=== PATIENT | female | born 1935 | race Caucasian/White ===

== ENCOUNTER 2021-08-14 17:11 | Inpatient (IN) | payer MEDICARE, OTHER ==
[2021-08-14] MEDS ORDERED: Sodium Chloride 0.9% 10 ML Syringe FLUSH PRN (17:13)
[2021-08-14] MEDS ORDERED: Lactated Ringers 1,000 ML IV ONE (17:15)
[2021-08-14] MEDS ORDERED: cefTRIAXone 2 GM Vial IVPUSH STA (17:21)
[2021-08-14] MEDS ORDERED: Acetaminophen 500 MG Tab PO ONE (17:32)
--- NOTE | 2021-08-14 17:32 | EDM.PDOC ---
ED HPI GENERAL MEDICAL PROBLEM - General Chief Complaint: Fever Stated Complaint: Chills, Fever,Weakness Time Seen by Provider: 08/14/21 17:11 Source of Information: Reports: Patient History Limitations: Reports: No Limitations - History of Present Illness INITIAL COMMENTS - FREE TEXT/NARRATIVE: Patient comes emergency department today from home with complaints of fever and shaking. This patient who has a history of Hypertension high cholesterol type 2 diabetes hypothyroidism obesity hyponatremia CKD stage III who received her Covid vaccine on Wednesday has had fever chills. This patient over the past 2 weeks is just not felt well. She has not had much of an appetite. She has had a little bit of a cough and congestion. She received her Covid booster on Wednesday and since then she has had increased malaise fatigue body aches fever and chills. She was seen in the clinic today for similar concerns and not have any lab work but received IV fluids. She did have some diarrhea on and Wednesday of last week. She has not been on any antibiotics recently no recent travel. At this time she has no shortness of breath or difficulty breathing. She has complained of a cough that is nonproductive. No abdominal pain nausea or vomiting. No hematuria dysuria urinary frequency. Diarrhea has resolved. She has generlized weakness as well nothing specific. - Related Data Allergies Allergy/AdvReac Type Severity Reaction Status Date / Time ciprofloxacin Allergy Nausea and Verified 08/14/21 18:00 Vomiting Penicillins Allergy Rash Verified 08/14/21 18:00 Home Meds: Home Meds Cholecalciferol (Vitamin D3) [Vitamin D3] 1,000 units PO BID 03/20/14 [History] Chondroitin/Glucosamine [Glucosamine-Chondroitin] 2 cap PO DAILY 03/20/14 [History] Losartan [Cozaar] 1 cap PO DAILY 03/20/14 [History] Multivitamin [Multi-Vitamin Daily] 1 each PO DAILY 03/20/14 [History] Ciclopirox [Penlac 8% Nail Lacquer] 1 applic TOP BEDTIME 08/14/21 [History] Cranberry Fruit Extract [Cranberry] 200 mg PO BID PRN 08/14/21 [History] Docusate Sodium 100 mg PO DAILY 08/14/21 [History] Fluticasone Propionate [Flonase] 1 spray NASBOTH DAILY 08/14/21 [History] Levothyroxine [Synthroid] 50 mcg PO ACBREAKFAST 08/14/21 [History] Pantoprazole [ProTONIX] 40 mg PO DAILY 08/14/21 [History] Simvastatin [Zocor] 40 mg PO BEDTIME 08/14/21 [History] Spironolactone 50 mg PO DAILY 08/14/21 [History] atenoloL [Atenolol] 100 mg PO DAILY 08/14/21 [History] cilostazoL [Pletal] 100 mg PO BID 08/14/21 [History] Past Medical History HEENT History: Reports: Impaired Vision Cardiovascular History: Reports: High Cholesterol, Hypertension Genitourinary History: Reports: UTI, Recurrent Endocrine/Metabolic History: Reports: Diabetes, Type II Social & Family History - Living Situation & Occupation Living situation: Reports: , with Family Occupation: Other ED ROS GENERAL - Review of Systems Review Of Systems: Comprehensive ROS is negative, except as noted in HPI. ED EXAM, SEPSIS - Physical Exam Exam: See Below Exam Limited By: No Limitations General Appearance: Alert, WD/WN, No Apparent Distress Eye Exam: Bilateral Eye: EOMI, PERRL Ears: Normal External Exam Nose: Normal Inspection Throat/Mouth: Normal Inspection Head: Atraumatic, Normocephalic Neck: Normal Inspection, Supple, Non-Tender, Full Range of Motion Respiratory/Chest: No Respiratory Distress, Lungs Clear, Normal Breath Sounds, No Accessory Muscle Use, Chest Non-Tender Cardiovascular: Normal Peripheral Pulses, Regular Rate, Rhythm, Tachycardia Peripheral Pulses: 2+: Radial (L), Radial (R), Posterior Tibial (L), Posterior Tibial (R), Dorsalis Pedis (L), Dorsalis Pedis (R) GI/Abdominal Exam: Normal Bowel Sounds, Soft, Non-Tender (Female) Exam: Deferred Rectal (Female) Exam: Deferred Back: Normal Inspection, Full Range of Motion Extremities: Normal Inspection, Normal Range of Motion, Non-Tender, No Pedal Edema, Normal Capillary Refill Neurological: Alert, Oriented, Normal Cognition, No Motor/Sensory Deficits Psychiatric: Normal Affect, Normal Mood Skin: Intact, Normal Color, Diaphoretic, Increased Warmth Course - Vital Signs Last Recorded V/S: Last Vital Signs Temp 100.6 F 08/14/21 18:08 Pulse 91 08/14/21 18:30 Resp 22 H 08/14/21 18:30 BP 149/52 H 08/14/21 18:30 Pulse Ox 88 L 08/14/21 18:30 - Orders/Labs/Meds Orders: Active Orders 24 hr Category Date Time Status Admission Status [Patient Status] [ADT] Routine ADT 08/14/21 18:53 Active Cardiac Monitoring [RC] CONTINUOUS Care 08/14/21 17:14 Active Overnight Pulse Oximetry [RC] Click to Edit Care 08/14/21 17:14 Active Peripheral IV Care [RC] . DIRECTED Care 08/14/21 17:15 Active Chest 1V Frontal [CR] Stat Exams 08/14/21 17:13 Taken CORONAVIRUS COVID-19 SYED [MOLEC] Stat Lab 08/14/21 17:25 Received CULTURE BLOOD [BC] Stat Lab 08/14/21 17:15 Received CULTURE BLOOD [BC] Stat Lab 08/14/21 17:45 Received CULTURE URINE [RM] Stat Lab 08/14/21 18:43 Received FERRITIN [CHEM] Stat Lab 08/14/21 19:33 Ordered FOLATE [REF] Stat Lab 08/14/21 19:33 Ordered FOLIC ACID [CHEM] Stat Lab 08/14/21 19:33 Ordered IRON/TIBC [CHEM] Stat Lab 08/14/21 19:33 Ordered PROCALCITONIN [REF] Stat Lab 08/14/21 17:15 Received VITAMIN B12 [CHEM] Stat Lab 08/14/21 19:33 Ordered Sodium Chloride 0.9% [Normal Saline] 1,000 ml Med 08/14/21 18:30 Active IV ASDIRECTED Sodium Chloride 0.9% [Saline Flush] Med 08/14/21 17:13 Active 10 ml FLUSH ASDIRECTED PRN Sodium Chloride 0.9% [Saline Flush] Med 08/14/21 17:15 Active 10 ml FLUSH ASDIRECTED PRN Blood Culture x2 Reflex Set [OM.PC] Stat Oth 08/14/21 17:13 Ordered Peripheral IV Insertion Adult [OM.PC] Stat Oth 08/14/21 17:15 Ordered Pulse Oximetry Continuous Monitoring [OM.PC] Routine Oth 08/14/21 17:13 Ordered Saline Lock Insert [OM.PC] Stat Oth 08/14/21 17:13 Ordered Severe Sepsis Onset Time [OM.PC] Stat Oth 08/14/21 17:13 Ordered Medication Orders Sodium Chloride (Normal Saline) 1,000 mls @ 150 mls/hr IV ASDIRECTED SIMONA Last Admin: 08/14/21 18:19 Dose: 150 mls/hr Documented by: STEVEN Sodium Chloride (Sodium Chloride 0.9% 10 Ml Syringe) 10 ml FLUSH ASDIRECTED PRN PRN Reason: Keep Vein Open Sodium Chloride (Sodium Chloride 0.9% 10 Ml Syringe) 10 ml FLUSH ASDIRECTED PRN PRN Reason: Keep Vein Open Labs: Laboratory Tests 08/14/21 08/14/21 08/14/21 Range/Units 17:15 17:15 17:15 WBC 5.1 (4.0-10.2) K/uL RBC 3.14 L (3.77-5.09) M/uL Hgb 10.3 L D (11.7-15.5) g/dL Hct 29.5 L (34.0-46.0) % MCV 93.9 (84.0-98.0) fL MCH 32.8 (28.2-33.3) pg MCHC 34.9 (31.7-36.0) g/dL RDW 11.7 (11.2-14.1) % Plt Count 246 (150-350) K/uL Neut % (Auto) 91.2 H (45.0-80.0) % Lymph % (Auto) 6.6 L (10.0-50.0) % [place] % (Auto) 1.4 L (2.0-14.0) % Eos % (Auto) 0.6 (0.0-5.0) % Baso % (Auto) 0.2 (0.0-2.0) % Neut # (Auto) 4.67 (1.40-7.00) K/uL Lymph # (Auto) 0.34 L (0.50-3.50) K/uL [place] # (Auto) 0.07 (0.00-1.00) K/uL Eos # (Auto) 0.03 (0.00-0.50) K/uL Baso # (Auto) 0.01 (0.00-0.20) K/uL Sodium 128 L D (136-145) mmol/L Potassium 4.6 (3.5-5.1) mmol/L Chloride 96 L (98-107) mmol/L Carbon Dioxide 18.7 L (21.0-32.0) mmol/L Anion Gap 17.9 H (7-15) meq/L BUN 30 H (7-18) mg/dL Creatinine 1.87 H (0.51-1.17) mg/dL Est Cr Clr Drug Dosing 20.59 mL/min Estimated GFR (MDRD) 26 mL/min Glucose 93 (70-99) mg/dL Lactic Acid 1.3 (0.4-2.0) mmol/L Calcium 9.0 (8.5-10.1) mg/dL Total Bilirubin 0.7 (0.2-1.0) mg/dL AST 46 H (15-37) U/L ALT 52 (12-78) U/L Alkaline Phosphatase 36 L (46-116) IU/L C-Reactive Protein 22.0 H (<=0.9) mg/dL Total Protein 7.0 (6.4-8.2) g/dL Albumin 2.9 L (3.4-5.0) g/dL Specimen Type Urine Color Urine Appearance Urine pH (5.0-9.0) Ur Specific [place] (1.005-1.030) Urine Protein (NEGATIVE) mg/dL Urine Glucose (UA) (NEGATIVE) mg/dL Urine Ketones (NEGATIVE) mg/dL Urine Occult Blood (NEGATIVE) Urine Nitrite (NEGATIVE) Urine Bilirubin (NEGATIVE) Urine Urobilinogen (0.2-1.0) E.U./dL Ur Leukocyte Esterase (NEGATIVE) U Hyaline Cast (Auto) Urine RBC /HPF Urine WBC /HPF Ur Epithelial Cells /LPF Urine Bacteria (NONE TO FEW) /HPF Urinalysis Comment SARS-CoV-2 Ag (Rapid) (NEGATIVE) 08/14/21 08/14/21 Range/Units 17:25 18:43 WBC (4.0-10.2) K/uL RBC (3.77-5.09) M/uL Hgb (11.7-15.5) g/dL Hct (34.0-46.0) % MCV (84.0-98.0) fL MCH (28.2-33.3) pg MCHC (31.7-36.0) g/dL RDW (11.2-14.1) % Plt Count (150-350) K/uL Neut % (Auto) (45.0-80.0) % Lymph % (Auto) (10.0-50.0) % [place] % (Auto) (2.0-14.0) % Eos % (Auto) (0.0-5.0) % Baso % (Auto) (0.0-2.0) % Neut # (Auto) (1.40-7.00) K/uL Lymph # (Auto) (0.50-3.50) K/uL [place] # (Auto) (0.00-1.00) K/uL Eos # (Auto) (0.00-0.50) K/uL Baso # (Auto) (0.00-0.20) K/uL Sodium (136-145) mmol/L Potassium (3.5-5.1) mmol/L Chloride (98-107) mmol/L Carbon Dioxide (21.0-32.0) mmol/L Anion Gap (7-15) meq/L BUN (7-18) mg/dL Creatinine (0.51-1.17) mg/dL Est Cr Clr Drug Dosing mL/min Estimated GFR (MDRD) mL/min Glucose (70-99) mg/dL Lactic Acid (0.4-2.0) mmol/L Calcium (8.5-10.1) mg/dL Total Bilirubin (0.2-1.0) mg/dL AST (15-37) U/L ALT (12-78) U/L Alkaline Phosphatase (46-116) IU/L C-Reactive Protein (<=0.9) mg/dL Total Protein (6.4-8.2) g/dL Albumin (3.4-5.0) g/dL Specimen Type Urinvoid Urine Color Yellow Urine Appearance Cloudy Urine pH 5.5 (5.0-9.0) Ur Specific [place] 1.010 (1.005-1.030) Urine Protein 100 H (NEGATIVE) mg/dL Urine Glucose (UA) Negative (NEGATIVE) mg/dL Urine Ketones Negative (NEGATIVE) mg/dL Urine Occult Blood Small H (NEGATIVE) Urine Nitrite Positive H (NEGATIVE) Urine Bilirubin Negative (NEGATIVE) Urine Urobilinogen 0.2 (0.2-1.0) E.U./dL Ur Leukocyte Esterase Trace H (NEGATIVE) U Hyaline Cast (Auto) Few Urine RBC 0-5 /HPF Urine WBC 30-40 H /HPF Ur Epithelial Cells Moderate H /LPF Urine Bacteria Many H (NONE TO FEW) /HPF Urinalysis Comment See note SARS-CoV-2 Ag (Rapid) Negative (NEGATIVE) Meds: Medications Generic Name Dose Route Start Last Admin Trade Name Freq PRN Reason Stop Dose Admin Sodium Chloride 1,000 mls @ 150 mls/hr 08/14/21 18:30 08/14/21 18:19 Normal Saline IV 150 mls/hr ASDIRECTED SIMONA Administration Sodium Chloride 10 ml 08/14/21 17:13 Sodium Chloride 0.9% 10 Ml Syringe FLUSH ASDIRECTED PRN Keep Vein Open Sodium Chloride 10 ml 08/14/21 17:15 Sodium Chloride 0.9% 10 Ml Syringe FLUSH ASDIRECTED PRN Keep Vein Open Discontinued Medications Generic Name Dose Route Start Last Admin Trade Name Freq PRN Reason Stop Dose Admin Acetaminophen 1,000 mg 08/14/21 17:32 08/14/21 17:36 Acetaminophen 500 Mg Tab PO 08/14/21 17:33 1,000 mg ONETIME ONE Administration Ceftriaxone Sodium 2 gm 08/14/21 17:21 08/14/21 17:36 Ceftriaxone 2 Gm Vial IVPUSH 08/14/21 17:22 2 gm NOW STA Administration Lactated Ringer's 1,000 mls @ 1,000 mls/hr 08/14/21 17:15 08/14/21 17:20 Ringers, Lactated IV 08/14/21 18:14 1,000 mls/hr .BOLUS ONE Administration - Radiology Interpretation Free Text/Narrative:: Chest x-ray initially reviewed extemporaneously by myself question some perihilar infiltrate possible pneumonia. Patient Name: CARLOS AGUILA Date of : 1935 Procedure: XRAY CHEST 1 VIEW Date of Service: 08/14/2021 EXAM: XRAY CHEST 1 VIEW INDICATION:ICD-10 R50.9 Fever, unspecified ICD-10 R53.1 Weakness FINDINGS:There are patchy markings in the left perihilar region and both infrahi lar regions. Findings suggest bilateral pneumonia. Heart size is upper normal. Mediastinum is not widened. No overt CHF. Finalized by: Hansel Nichols MD on 08/14/2021 6:01 PM [employer]LY[employer] Patient/Procedure Information: [facility] OUTREACH MRN/JAMEL: [id number]/ Order Number: [id number] Accession Number: [id number] Ordering Provider: THEO FRYE Authorizing Provider: THEO FRYE - Re-Assessments/Exams Free Text/Narrative Re-Assessment/Exam: 08/14/21 17:26 Concerns of a sepsis was initially identified at 1710. IV was established labs are drawn to include blood cultures x2. UA and COVID test. LR 1 L wide open. Rocephin 2 g IV push. Tylenol for fever. 08/14/21 17:27 Creat baseline in epic appears to be 1.50 GFR 33. CBC, WBC 5.1, hemoglobin 10.3 which is down from 12.5 on 10/2220. Platelets normal 246 neutrophil count 91.2, lymphs 6.6 monos 1.4. CMP with a sodium of 128, on 04-29-21 it was 130, chloride 96, CO2 18.7, anion gap 17.9, BUN 30, creatinine 1.87 Lactic acid normal at 1.3. CRP 22.0. Procalcitonin pending. Covid negative. The patient is requiring 2 L of oxygen to keep her oxygen saturation above 90%. Her chest x-ray is concerning for the possibility of bilateral pneumonia. We will cover her with a azithromycin as well. UA with trace leukocytes nitrite positive large amount of U WBCs. Urine culture pending. Patient clearly has severe sepsis as well as acute kidney injury on chronic with anemia hyponatremia and generalized weakness and bilateral pneumonia and hypoxia. Due to the above concerns the patient will be placed in acute care inpatient services under my care. We will treat aggressively as per the assessment and plan. Discussed with the patient and the family her CODE STATUS which had not been discussed previously and she will be a DNR/DNI. Patient and the family are comfortable with this plan and their questions are answered. Departure - Departure Time of Disposition: 18:30 Disposition: Admitted As Inpatient 66 Clinical Impression: Hyponatremia, UTI, Urinary tract infectious disease, Severe sepsis with acute organ dysfunction, Acute respiratory failure with hypoxia, Community acquired pneumonia Acute renal failure superimposed on stage 3b chronic kidney disease Qualifiers: Acute renal failure type: unspecified Qualified Code(s): N17.9 - Acute kidney failure, unspecified; N18.32 - Chronic kidney disease, stage 3b Anemia Qualifiers: Anemia type: unspecified type Qualified Code(s): D64.9 - Anemia, unspecified - Discharge Information Referrals: Patricia Sharma PA-C [Primary Care Provider] - Forms: ED Department Discharge Sepsis Event Note (ED) - Focused Exam Vital Signs: Vital Signs Temp Temp Pulse Resp BP Pulse Ox 08/14/21 18:30 91 22 H 149/52 H 88 L 08/14/21 18:08 100.6 F 98 22 H 149/67 H 90 L 08/14/21 18:06 101.5 F H 08/14/21 17:53 97 20 142/96 H 93 L 08/14/21 17:41 101.5 F H 95 18 145/61 H 94 L 08/14/21 17:36 101.2 F H 08/14/21 17:15 101.2 F H 91 20 154/58 H 97 - Problem List & Annotations (1) Acute UTI SNOMED Code(s): 742352267 Code(s): N39.0 - URINARY TRACT INFECTION, SITE NOT SPECIFIED Status: Acute (2) Acute renal failure superimposed on stage 3b chronic kidney disease SNOMED Code(s): 390554837 Code(s): N17.9 - ACUTE KIDNEY FAILURE, UNSPECIFIED; N18.32 - CHRONIC KIDNEY DISEASE, STAGE 3B Status: Acute Qualifiers: Acute renal failure type: unspecified Qualified Code(s): N17.9 - Acute kidney failure, unspecified; N18.32 - Chronic kidney disease, stage 3b (3) Anemia SNOMED Code(s): 538908639 Code(s): D64.9 - ANEMIA, UNSPECIFIED Status: Acute Qualifiers: Anemia type: unspecified type Qualified Code(s): D64.9 - Anemia, unspecified (4) Hyponatremia SNOMED Code(s): 97851419 Code(s): E87.1 - HYPO-OSMOLALITY AND HYPONATREMIA Status: Acute Priority: High Onset Date: 03/20/14 Annotation/Comment:: Resolved hyponatremia spite aggressive IV Lasix therapy with mild CHF being a contributing factor to her previous hyponatremia (5) Severe sepsis with acute organ dysfunction SNOMED Code(s): 05244996 Code(s): A41.9 - SEPSIS, UNSPECIFIED ORGANISM; R65.20 - SEVERE SEPSIS WITHOUT SEPTIC SHOCK Status: Acute (6) Diabetes mellitus SNOMED Code(s): 18087403 Code(s): E11.9 - TYPE 2 DIABETES MELLITUS WITHOUT COMPLICATIONS Status: Chronic Priority: Medium Annotation/Comment:: Diet resumed earlier today with reinitiation of her oral anti-diabetic medications. Continue twice a day Accu-Cheks (7) HTN, Benign hypertension SNOMED Code(s): 10054498 Code(s): I10 - ESSENTIAL (PRIMARY) HYPERTENSION Status: Chronic Priority: Low Annotation/Comment:: Blood pressure is under good control despite current Lasix therapy. Continue to observe her potassium closely. (8) Hypothyroidism SNOMED Code(s): 94667781 Code(s): E03.9 - HYPOTHYROIDISM, UNSPECIFIED Status: Chronic Priority: Medium Annotation/Comment:: Her TSH is somewhat depressed on admission with decrease of her L. thyroxine therapy during this hospitalization (9) Acute respiratory failure with hypoxia SNOMED Code(s): 53234464, 896099912 Code(s): J96.01 - ACUTE RESPIRATORY FAILURE WITH HYPOXIA Status: Acute (10) Community acquired pneumonia SNOMED Code(s): 074991097 Code(s): J18.9 - PNEUMONIA, UNSPECIFIED ORGANISM Status: Acute Annotation/Comment:: Patchy markings in the left perihilar region in both infrahilar regions. Suggestive of bilateral pneumonia - Problem List Review Problem List Initiated/Reviewed/Updated: Yes - My Orders Last 24 Hours: My Active Orders 08/14/21 17:13 Chest 1V Frontal [CR] Stat Sodium Chloride 0.9% [Saline Flush] 10 ml FLUSH ASDIRECTED PRN Blood Culture x2 Reflex Set [OM.PC] Stat Pulse Oximetry Continuous Monitoring [OM.PC] Routine Saline Lock Insert [OM.PC] Stat Severe Sepsis Onset Time [OM.PC] Stat 08/14/21 17:14 Cardiac Monitoring [RC] CONTINUOUS Overnight Pulse Oximetry [RC] Click to Edit 08/14/21 17:15 Peripheral IV Care [RC] . DIRECTED CULTURE BLOOD [BC] Stat PROCALCITONIN [REF] Stat Sodium Chloride 0.9% [Saline Flush] 10 ml FLUSH ASDIRECTED PRN Peripheral IV Insertion Adult [OM.PC] Stat 08/14/21 17:25 CORONAVIRUS COVID-19 SYED [MOLEC] Stat 08/14/21 17:45 CULTURE BLOOD [BC] Stat 08/14/21 18:30 Sodium Chloride 0.9% [Normal Saline] 1,000 ml IV ASDIRECTED 08/14/21 18:43 CULTURE URINE [RM] Stat 08/14/21 18:53 Admission Status [Patient Status] [ADT] Routine 08/14/21 19:33 FERRITIN [CHEM] Stat FOLATE [REF] Stat FOLIC ACID [CHEM] Stat IRON/TIBC [CHEM] Stat VITAMIN B12 [CHEM] Stat - Assessment/Plan Admission H&P: Please use this note as an admission H&P Last 24 Hours: My Active Orders 08/14/21 17:13 Chest 1V Frontal [CR] Stat Sodium Chloride 0.9% [Saline Flush] 10 ml FLUSH ASDIRECTED PRN Blood Culture x2 Reflex Set [OM.PC] Stat Pulse Oximetry Continuous Monitoring [OM.PC] Routine Saline Lock Insert [OM.PC] Stat Severe Sepsis Onset Time [OM.PC] Stat 08/14/21 17:14 Cardiac Monitoring [RC] CONTINUOUS Overnight Pulse Oximetry [RC] Click to Edit 08/14/21 17:15 Peripheral IV Care [RC] . DIRECTED CULTURE BLOOD [BC] Stat PROCALCITONIN [REF] Stat Sodium Chloride 0.9% [Saline Flush] 10 ml FLUSH ASDIRECTED PRN Peripheral IV Insertion Adult [OM.PC] Stat 08/14/21 17:25 CORONAVIRUS COVID-19 SYED [MOLEC] Stat 08/14/21 17:45 CULTURE BLOOD [BC] Stat 08/14/21 18:30 Sodium Chloride 0.9% [Normal Saline] 1,000 ml IV ASDIRECTED 08/14/21 18:43 CULTURE URINE [RM] Stat 08/14/21 18:53 Admission Status [Patient Status] [ADT] Routine 08/14/21 19:33 FERRITIN [CHEM] Stat FOLATE [REF] Stat FOLIC ACID [CHEM] Stat IRON/TIBC [CHEM] Stat VITAMIN B12 [CHEM] Stat Assessment:: Admit inpatient to my service acute care inpatient with the below. Acute diagnosis: Severe sepsis due to #2/3. WBC 5.1, hemoglobin 10.3, neutrophil 91.2, platelet 246 lactic 1.3. Fever 101, Tachypnea Cultures pending Rocephin 1 g IVPB q24 UTI Nitrite positive, U WBC 3040 trace leukocytes bacteria many Urine culture pending, 2 g Rocephin ER 1 g every 24 Community Acquired Pneumonia bilaterally. CXR with infrahilar patchy markings. Ceftriaxone and Azithro 500mg qd. Acute hypoxic respiratory failure. 2/2 #3. Oxygen sats 87% RA, requiring 2 liters oxygen. Oxygen PRN treat CAP. Acute on chronic renal failure stage IIIb. Baseline creatinine 1.5, 08/14/21 1.87, BUN 30, GFR 26. LR bolus ER 1 liter, NS 125mls/hr repeat labs. Anemia, ? CKD or blood loss. Baseline hgb 12.5, 10.3 admission nrml MCV/MCH Stool for blood. Anemia workup pending. Acute on Chronic Hyponatremia. basline 130, 128 08/14/21 NS 125mls/hr. Generalized Weakness. Could be multifactorial, sepsis/hyponatremia/physical deconditioning. Treat as above and PT/OT eval. Chronic Diagnosis: Obesity: BMI >30. Discussed healthy eating techniques and exercise. Hypertension 154/58 stable. Losartan 100mg qd. Spironolactone 50mg qd Atenolol 100mg qd. Arterial Occlusive disease, embolism and thrombosis of unspecified artery Asa 81mg qd, Cilostazol 100mg bid. Hypothyroidism TSH 1.21 08/12/21 stable Synthroid 50mcg qd. Pure Hypercholesterolemia Stable continue Simvastatin 40mg qd. Type 2 DM without complications. HgbA1c 6.0 04/30/21 BS labs 93 08/14/21 Monitor BS daily labs. Esophageal Reflux Stable no complaints monitor. Continue Protonix 40mg qd. VTE: Lovenox 30mg subcut TEDs CrCl 29.29 Sepsis: Noted as above. Cultures pending. Ceftriaxone 1 gram qd, azithro 500mg qd. follow and monitor. Code Status. Code status discussed at length with the patient who was previously was unsure, discussed aprox 5 minutes. She decided DNR/DNI. DNR/DNI We will admit the patient into acute care services here for further care and management I do not anticipate more than 2-3 days with the above especially with her weakness and currently home alone without assistance. Her family is available but not constantly. Case management for discharge planning. Treat as above. Care to Dr. Michaud in the morning at change of coverage. Please use this note as admission H&P.
[2021-08-14 18:11] LABS: ANION GAP 17.9 meq/L (7-15)
[2021-08-14] MEDS ORDERED: Sodium Chloride 0.9% 1,000 ML IV SCH (18:30)
[2021-08-14] MEDS: Azithromycin 500 MG in Sodium Chloride 0.9% 250 ML IV SCH (21:42)
[2021-08-15] MEDS: Sodium Chloride 0.9% 1,000 ML IV SCH ×2 (03:59→04:01)
[2021-08-15] MEDS: Levothyroxine 50 MCG Tab PO SCH (07:31)
[2021-08-15] MEDS: Pantoprazole 40 MG Tab.CR PO SCH (07:31)
[2021-08-15] MEDS: Multivitamin Tab PO SCH (07:32)
[2021-08-15] MEDS: Cholecalciferol (Vitamin D3) 25 MCG Tab PO SCH ×2 (07:32→17:18)
[2021-08-15] MEDS: Enoxaparin 30 MG/0.3 ML Syringe SUBCUT SCH (07:32)
[2021-08-15] MEDS: Atenolol 50 MG Tab PO SCH (07:32)
[2021-08-15] MEDS: Docusate Sodium 100 MG Cap PO SCH (07:32)
[2021-08-15] MEDS: Spironolactone 25 MG Tab PO SCH (07:32)
[2021-08-15] MEDS: Losartan 50 MG Tab PO SCH (07:32)
[2021-08-15] MEDS ORDERED: Fluticasone Propionate Nasal Spray 16 GM Bottle NASBOTH SCH (08:00)
--- NOTE | 2021-08-15 08:10 | PCM.SN.2 ---
- Free Text/Narrative Note: Blood cultures with gram negative Rods. Final ID and sens pending. Will change her ceftriaxone to 2 grams IVPB q24hrs.
[2021-08-15 08:17] LABS: ANION GAP 15.7 meq/L (7-15)
--- NOTE | 2021-08-15 09:21 | PCM.PN ---
- General Info Date of Service: 08/15/21 Admission Dx/Problem (Free Text): Gram negative bacteremia likely secondary to uncomplicated urinary tract infection. bilateral community acquired pneumonia. acute respiratory failure with hypoxia. currently on broad spec abx while awaiting final urine culture results. blood cultures positive for gram negative rods on 08/14. repeat cultures pending. Subjective Update: feeling much better but not baseline. up around room independently today. Functional Status: Reports: Pain Controlled - Review of Systems General: Reports: No Symptoms HEENT: Reports: No Symptoms Pulmonary: Reports: No Symptoms Cardiovascular: Reports: No Symptoms Gastrointestinal: Reports: No Symptoms Genitourinary: Reports: No Symptoms Musculoskeletal: Reports: No Symptoms Skin: Reports: No Symptoms Neurological: Reports: No Symptoms Psychiatric: Reports: No Symptoms - Patient Data Vitals - Most Recent: Last Vital Signs Temp 97.3 F 08/15/21 08:00 Pulse 63 08/15/21 08:00 Resp 12 08/15/21 08:00 BP 123/58 L 08/15/21 08:00 Pulse Ox 100 08/15/21 08:00 Weight - Most Recent: 161 lb I&O - Last 24 Hours: Intake & Output 08/14/21 08/15/21 08/15/21 22:59 06:59 14:59 Intake Total 1000 1345 360 Output Total 500 Balance 1000 845 360 Lab Results Last 24 Hours: Laboratory Results - last 24 hr 08/14/21 08/14/21 08/14/21 Range/Units 17:15 17:15 17:15 WBC 5.1 (4.0-10.2) K/uL RBC 3.14 L (3.77-5.09) M/uL Hgb 10.3 L D (11.7-15.5) g/dL Hct 29.5 L (34.0-46.0) % MCV 93.9 (84.0-98.0) fL MCH 32.8 (28.2-33.3) pg MCHC 34.9 (31.7-36.0) g/dL RDW 11.7 (11.2-14.1) % Plt Count 246 (150-350) K/uL Neut % (Auto) 91.2 H (45.0-80.0) % Lymph % (Auto) 6.6 L (10.0-50.0) % [place] % (Auto) 1.4 L (2.0-14.0) % Eos % (Auto) 0.6 (0.0-5.0) % Baso % (Auto) 0.2 (0.0-2.0) % Neut # (Auto) 4.67 (1.40-7.00) K/uL Lymph # (Auto) 0.34 L (0.50-3.50) K/uL [place] # (Auto) 0.07 (0.00-1.00) K/uL Eos # (Auto) 0.03 (0.00-0.50) K/uL Baso # (Auto) 0.01 (0.00-0.20) K/uL Sodium 128 L D (136-145) mmol/L Potassium 4.6 (3.5-5.1) mmol/L Chloride 96 L (98-107) mmol/L Carbon Dioxide 18.7 L (21.0-32.0) mmol/L Anion Gap 17.9 H (7-15) meq/L BUN 30 H (7-18) mg/dL Creatinine 1.87 H (0.51-1.17) mg/dL Est Cr Clr Drug Dosing 20.59 mL/min Estimated GFR (MDRD) 26 mL/min Glucose 93 (70-99) mg/dL Lactic Acid 1.3 (0.4-2.0) mmol/L Calcium 9.0 (8.5-10.1) mg/dL Iron (50-175) ug/dL TIBC (250-450) ug/dL % Saturation Ferritin (8-388) ng/mL Total Bilirubin 0.7 (0.2-1.0) mg/dL AST 46 H (15-37) U/L ALT 52 (12-78) U/L Alkaline Phosphatase 36 L (46-116) IU/L C-Reactive Protein 22.0 H (<=0.9) mg/dL Total Protein 7.0 (6.4-8.2) g/dL Albumin 2.9 L (3.4-5.0) g/dL Specimen Type Urine Color Urine Appearance Urine pH (5.0-9.0) Ur Specific [place] (1.005-1.030) Urine Protein (NEGATIVE) mg/dL Urine Glucose (UA) (NEGATIVE) mg/dL Urine Ketones (NEGATIVE) mg/dL Urine Occult Blood (NEGATIVE) Urine Nitrite (NEGATIVE) Urine Bilirubin (NEGATIVE) Urine Urobilinogen (0.2-1.0) E.U./dL Ur Leukocyte Esterase (NEGATIVE) U Hyaline Cast (Auto) Urine RBC /HPF Urine WBC /HPF Ur Epithelial Cells /LPF Urine Bacteria (NONE TO FEW) /HPF Urinalysis Comment SARS-CoV-2 Ag (Rapid) (NEGATIVE) 08/14/21 08/14/21 08/14/21 Range/Units 17:15 17:25 18:43 WBC (4.0-10.2) K/uL RBC (3.77-5.09) M/uL Hgb (11.7-15.5) g/dL Hct (34.0-46.0) % MCV (84.0-98.0) fL MCH (28.2-33.3) pg MCHC (31.7-36.0) g/dL RDW (11.2-14.1) % Plt Count (150-350) K/uL Neut % (Auto) (45.0-80.0) % Lymph % (Auto) (10.0-50.0) % [place] % (Auto) (2.0-14.0) % Eos % (Auto) (0.0-5.0) % Baso % (Auto) (0.0-2.0) % Neut # (Auto) (1.40-7.00) K/uL Lymph # (Auto) (0.50-3.50) K/uL [place] # (Auto) (0.00-1.00) K/uL Eos # (Auto) (0.00-0.50) K/uL Baso # (Auto) (0.00-0.20) K/uL Sodium (136-145) mmol/L Potassium (3.5-5.1) mmol/L Chloride (98-107) mmol/L Carbon Dioxide (21.0-32.0) mmol/L Anion Gap (7-15) meq/L BUN (7-18) mg/dL Creatinine (0.51-1.17) mg/dL Est Cr Clr Drug Dosing mL/min Estimated GFR (MDRD) mL/min Glucose (70-99) mg/dL Lactic Acid (0.4-2.0) mmol/L Calcium (8.5-10.1) mg/dL Iron 41 L (50-175) ug/dL TIBC 180 L (250-450) ug/dL % Saturation 22.49103 Ferritin 689 H (8-388) ng/mL Total Bilirubin (0.2-1.0) mg/dL AST (15-37) U/L ALT (12-78) U/L Alkaline Phosphatase (46-116) IU/L C-Reactive Protein (<=0.9) mg/dL Total Protein (6.4-8.2) g/dL Albumin (3.4-5.0) g/dL Specimen Type Urinvoid Urine Color Yellow Urine Appearance Cloudy Urine pH 5.5 (5.0-9.0) Ur Specific [place] 1.010 (1.005-1.030) Urine Protein 100 H (NEGATIVE) mg/dL Urine Glucose (UA) Negative (NEGATIVE) mg/dL Urine Ketones Negative (NEGATIVE) mg/dL Urine Occult Blood Small H (NEGATIVE) Urine Nitrite Positive H (NEGATIVE) Urine Bilirubin Negative (NEGATIVE) Urine Urobilinogen 0.2 (0.2-1.0) E.U./dL Ur Leukocyte Esterase Trace H (NEGATIVE) U Hyaline Cast (Auto) Few Urine RBC 0-5 /HPF Urine WBC 30-40 H /HPF Ur Epithelial Cells Moderate H /LPF Urine Bacteria Many H (NONE TO FEW) /HPF Urinalysis Comment See note SARS-CoV-2 Ag (Rapid) Negative (NEGATIVE) 08/15/21 08/15/21 08/15/21 Range/Units 07:15 07:15 07:15 WBC 10.2 (4.0-10.2) K/uL RBC 2.62 L (3.77-5.09) M/uL Hgb 8.6 L D (11.7-15.5) g/dL Hct 25.1 L (34.0-46.0) % MCV 95.8 (84.0-98.0) fL MCH 32.8 (28.2-33.3) pg MCHC 34.3 (31.7-36.0) g/dL RDW 11.8 (11.2-14.1) % Plt Count 218 (150-350) K/uL Neut % (Auto) 85.8 H (45.0-80.0) % Lymph % (Auto) 6.6 L (10.0-50.0) % [place] % (Auto) 7.3 (2.0-14.0) % Eos % (Auto) 0.2 (0.0-5.0) % Baso % (Auto) 0.1 (0.0-2.0) % Neut # (Auto) 8.78 H (1.40-7.00) K/uL Lymph # (Auto) 0.68 (0.50-3.50) K/uL [place] # (Auto) 0.75 (0.00-1.00) K/uL Eos # (Auto) 0.02 (0.00-0.50) K/uL Baso # (Auto) 0.01 (0.00-0.20) K/uL Sodium 135 L (136-145) mmol/L Potassium 4.7 (3.5-5.1) mmol/L Chloride 105 (98-107) mmol/L Carbon Dioxide 19.0 L (21.0-32.0) mmol/L Anion Gap 15.7 H (7-15) meq/L BUN 27 H (7-18) mg/dL Creatinine 1.59 H (0.51-1.17) mg/dL Est Cr Clr Drug Dosing 24.22 mL/min Estimated GFR (MDRD) 31 mL/min Glucose 128 H (70-99) mg/dL Lactic Acid 0.8 (0.4-2.0) mmol/L Calcium 8.0 L (8.5-10.1) mg/dL Iron (50-175) ug/dL TIBC (250-450) ug/dL % Saturation Ferritin (8-388) ng/mL Total Bilirubin (0.2-1.0) mg/dL AST (15-37) U/L ALT (12-78) U/L Alkaline Phosphatase (46-116) IU/L C-Reactive Protein 18.4 H (<=0.9) mg/dL Total Protein (6.4-8.2) g/dL Albumin (3.4-5.0) g/dL Specimen Type Urine Color Urine Appearance Urine pH (5.0-9.0) Ur Specific [place] (1.005-1.030) Urine Protein (NEGATIVE) mg/dL Urine Glucose (UA) (NEGATIVE) mg/dL Urine Ketones (NEGATIVE) mg/dL Urine Occult Blood (NEGATIVE) Urine Nitrite (NEGATIVE) Urine Bilirubin (NEGATIVE) Urine Urobilinogen (0.2-1.0) E.U./dL Ur Leukocyte Esterase (NEGATIVE) U Hyaline Cast (Auto) Urine RBC /HPF Urine WBC /HPF Ur Epithelial Cells /LPF Urine Bacteria (NONE TO FEW) /HPF Urinalysis Comment SARS-CoV-2 Ag (Rapid) (NEGATIVE) Tr Results Last 24 Hours: Microbiology 08/14/21 18:43 Urine Culture - Preliminary Urine, Voided Gram Negative Rods 08/14/21 17:15 Anaerobic Blood Culture - Preliminary Blood - Venous Gram Negative Rods Med Orders - Current: Current Medications Acetaminophen (Acetaminophen 325 Mg Tab) 650 mg PO Q4H PRN PRN Reason: Pain (Mild 1-3)/fever Atenolol (Atenolol 50 Mg Tab) 100 mg PO DAILY [facility] Last Admin: 08/15/21 07:32 Dose: 100 mg Documented by: Cholecalciferol (Cholecalciferol (Vitamin D3) 25 Mcg Tab) 25 mcg PO BID [facility] Last Admin: 08/15/21 07:32 Dose: 25 mcg Documented by: Docusate Sodium (Docusate Sodium 100 Mg Cap) 100 mg PO DAILY [facility] Last Admin: 08/15/21 07:32 Dose: 100 mg Documented by: Enoxaparin Sodium (Enoxaparin 30 Mg/0.3 Ml Syringe) 30 mg SUBCUT DAILY [facility] Last Admin: 08/15/21 07:32 Dose: 30 mg Documented by: Azithromycin 500 mg/ Sodium (Chloride) 250 mls @ 250 mls/hr IV Q24H [facility] Last Admin: 08/14/21 21:42 Dose: 250 mls/hr Documented by: Sodium Chloride (Normal Saline) 1,000 mls @ 125 mls/hr IV ASDIRECTED [facility] Last Admin: 08/15/21 04:01 Dose: 125 mls/hr Documented by: Ceftriaxone Sodium 2 gm/ (Sodium Chloride) 100 mls @ 200 mls/hr IV Q24H [facility] Levothyroxine Sodium (Levothyroxine 50 Mcg Tab) 50 mcg PO ACBREAKFAST [facility] Last Admin: 08/15/21 07:31 Dose: 50 mcg Documented by: Losartan Potassium (Losartan 50 Mg Tab) 100 mg PO DAILY [facility] Last Admin: 08/15/21 07:32 Dose: 100 mg Documented by: Multivitamins/Minerals/Vitamin C (Multivitamin Tab) 1 tab PO DAILY [facility] Last Admin: 08/15/21 07:32 Dose: 1 tab Documented by: Non-Formulary Medication (Cilostazol [Pletal]) 100 mg PO BID [facility] Pantoprazole Sodium (Pantoprazole 40 Mg Tab.Cr) 40 mg PO ACBREAKFAST [facility] Last Admin: 08/15/21 07:31 Dose: 40 mg Documented by: Simvastatin (Simvastatin 20 Mg Tab) 40 mg PO BEDTIME [facility] Sodium Chloride (Sodium Chloride 0.9% 10 Ml Syringe) 10 ml FLUSH ASDIRECTED PRN PRN Reason: Keep Vein Open Spironolactone (Spironolactone 25 Mg Tab) 50 mg PO DAILY [facility] Last Admin: 08/15/21 07:32 Dose: 50 mg Documented by: Discontinued Medications Acetaminophen (Acetaminophen 500 Mg Tab) 1,000 mg PO ONETIME ONE Stop: 08/14/21 17:33 Last Admin: 08/14/21 17:36 Dose: 1,000 mg Documented by: Ceftriaxone Sodium (Ceftriaxone 2 Gm Vial) 2 gm IVPUSH NOW STA Stop: 08/14/21 17:22 Last Admin: 08/14/21 17:36 Dose: 2 gm Documented by: Fluticasone Propionate (Fluticasone Propionate Nasal [place] 16 Gm Bottle) 0 gm NASBOTH DAILY [facility] Last Admin: 08/15/21 07:40 Dose: Not Given Documented by: Lactated Ringer's (Ringers, Lactated) 1,000 mls @ 1,000 mls/hr IV .BOLUS ONE Stop: 08/14/21 18:14 Last Admin: 08/14/21 17:20 Dose: 1,000 mls/hr Documented by: Sodium Chloride (Normal Saline) 1,000 mls @ 150 mls/hr IV ASDIRECTED [facility] Last Admin: 08/14/21 18:19 Dose: 150 mls/hr Documented by: Ceftriaxone Sodium 1 gm/ (Sodium Chloride) 100 mls @ 200 mls/hr IV Q24H [facility] Sodium Chloride (Sodium Chloride 0.9% 10 Ml Syringe) 10 ml FLUSH ASDIRECTED PRN PRN Reason: Keep Vein Open - Exam Quality Assessment: DVT Prophylaxis (subQ lovenox). No: Urine Catheter, Skin Breakdown General: Alert, Oriented HEENT: EOMI Lungs: Clear to Auscultation, Normal Respiratory Effort Cardiovascular: Regular Rate, Regular Rhythm GI/Abdominal Exam: Soft, Non-Tender Extremities: Normal Inspection, Normal Range of Motion Skin: Warm, Dry Neurological: No New Focal Deficit Psy/Mental Status: Alert, Normal Affect, Normal Mood - Patient Data Lab Results Last 24 hrs: Laboratory Results - last 24 hr 08/14/21 08/14/21 08/14/21 Range/Units 17:15 17:15 17:15 WBC 5.1 (4.0-10.2) K/uL RBC 3.14 L (3.77-5.09) M/uL Hgb 10.3 L D (11.7-15.5) g/dL Hct 29.5 L (34.0-46.0) % MCV 93.9 (84.0-98.0) fL MCH 32.8 (28.2-33.3) pg MCHC 34.9 (31.7-36.0) g/dL RDW 11.7 (11.2-14.1) % Plt Count 246 (150-350) K/uL Neut % (Auto) 91.2 H (45.0-80.0) % Lymph % (Auto) 6.6 L (10.0-50.0) % [place] % (Auto) 1.4 L (2.0-14.0) % Eos % (Auto) 0.6 (0.0-5.0) % Baso % (Auto) 0.2 (0.0-2.0) % Neut # (Auto) 4.67 (1.40-7.00) K/uL Lymph # (Auto) 0.34 L (0.50-3.50) K/uL [place] # (Auto) 0.07 (0.00-1.00) K/uL Eos # (Auto) 0.03 (0.00-0.50) K/uL Baso # (Auto) 0.01 (0.00-0.20) K/uL Sodium 128 L D (136-145) mmol/L Potassium 4.6 (3.5-5.1) mmol/L Chloride 96 L (98-107) mmol/L Carbon Dioxide 18.7 L (21.0-32.0) mmol/L Anion Gap 17.9 H (7-15) meq/L BUN 30 H (7-18) mg/dL Creatinine 1.87 H (0.51-1.17) mg/dL Est Cr Clr Drug Dosing 20.59 mL/min Estimated GFR (MDRD) 26 mL/min Glucose 93 (70-99) mg/dL Lactic Acid 1.3 (0.4-2.0) mmol/L Calcium 9.0 (8.5-10.1) mg/dL Iron (50-175) ug/dL TIBC (250-450) ug/dL % Saturation Ferritin (8-388) ng/mL Total Bilirubin 0.7 (0.2-1.0) mg/dL AST 46 H (15-37) U/L ALT 52 (12-78) U/L Alkaline Phosphatase 36 L (46-116) IU/L C-Reactive Protein 22.0 H (<=0.9) mg/dL Total Protein 7.0 (6.4-8.2) g/dL Albumin 2.9 L (3.4-5.0) g/dL Specimen Type Urine Color Urine Appearance Urine pH (5.0-9.0) Ur Specific [place] (1.005-1.030) Urine Protein (NEGATIVE) mg/dL Urine Glucose (UA) (NEGATIVE) mg/dL Urine Ketones (NEGATIVE) mg/dL Urine Occult Blood (NEGATIVE) Urine Nitrite (NEGATIVE) Urine Bilirubin (NEGATIVE) Urine Urobilinogen (0.2-1.0) E.U./dL Ur Leukocyte Esterase (NEGATIVE) U Hyaline Cast (Auto) Urine RBC /HPF Urine WBC /HPF Ur Epithelial Cells /LPF Urine Bacteria (NONE TO FEW) /HPF Urinalysis Comment SARS-CoV-2 Ag (Rapid) (NEGATIVE) 08/14/21 08/14/21 08/14/21 Range/Units 17:15 17:25 18:43 WBC (4.0-10.2) K/uL RBC (3.77-5.09) M/uL Hgb (11.7-15.5) g/dL Hct (34.0-46.0) % MCV (84.0-98.0) fL MCH (28.2-33.3) pg MCHC (31.7-36.0) g/dL RDW (11.2-14.1) % Plt Count (150-350) K/uL Neut % (Auto) (45.0-80.0) % Lymph % (Auto) (10.0-50.0) % [place] % (Auto) (2.0-14.0) % Eos % (Auto) (0.0-5.0) % Baso % (Auto) (0.0-2.0) % Neut # (Auto) (1.40-7.00) K/uL Lymph # (Auto) (0.50-3.50) K/uL [place] # (Auto) (0.00-1.00) K/uL Eos # (Auto) (0.00-0.50) K/uL Baso # (Auto) (0.00-0.20) K/uL Sodium (136-145) mmol/L Potassium (3.5-5.1) mmol/L Chloride (98-107) mmol/L Carbon Dioxide (21.0-32.0) mmol/L Anion Gap (7-15) meq/L BUN (7-18) mg/dL Creatinine (0.51-1.17) mg/dL Est Cr Clr Drug Dosing mL/min Estimated GFR (MDRD) mL/min Glucose (70-99) mg/dL Lactic Acid (0.4-2.0) mmol/L Calcium (8.5-10.1) mg/dL Iron 41 L (50-175) ug/dL TIBC 180 L (250-450) ug/dL % Saturation 22.73398 Ferritin 689 H (8-388) ng/mL Total Bilirubin (0.2-1.0) mg/dL AST (15-37) U/L ALT (12-78) U/L Alkaline Phosphatase (46-116) IU/L C-Reactive Protein (<=0.9) mg/dL Total Protein (6.4-8.2) g/dL Albumin (3.4-5.0) g/dL Specimen Type Urinvoid Urine Color Yellow Urine Appearance Cloudy Urine pH 5.5 (5.0-9.0) Ur Specific [place] 1.010 (1.005-1.030) Urine Protein 100 H (NEGATIVE) mg/dL Urine Glucose (UA) Negative (NEGATIVE) mg/dL Urine Ketones Negative (NEGATIVE) mg/dL Urine Occult Blood Small H (NEGATIVE) Urine Nitrite Positive H (NEGATIVE) Urine Bilirubin Negative (NEGATIVE) Urine Urobilinogen 0.2 (0.2-1.0) E.U./dL Ur Leukocyte Esterase Trace H (NEGATIVE) U Hyaline Cast (Auto) Few Urine RBC 0-5 /HPF Urine WBC 30-40 H /HPF Ur Epithelial Cells Moderate H /LPF Urine Bacteria Many H (NONE TO FEW) /HPF Urinalysis Comment See note SARS-CoV-2 Ag (Rapid) Negative (NEGATIVE) 08/15/21 08/15/21 08/15/21 Range/Units 07:15 07:15 07:15 WBC 10.2 (4.0-10.2) K/uL RBC 2.62 L (3.77-5.09) M/uL Hgb 8.6 L D (11.7-15.5) g/dL Hct 25.1 L (34.0-46.0) % MCV 95.8 (84.0-98.0) fL MCH 32.8 (28.2-33.3) pg MCHC 34.3 (31.7-36.0) g/dL RDW 11.8 (11.2-14.1) % Plt Count 218 (150-350) K/uL Neut % (Auto) 85.8 H (45.0-80.0) % Lymph % (Auto) 6.6 L (10.0-50.0) % [place] % (Auto) 7.3 (2.0-14.0) % Eos % (Auto) 0.2 (0.0-5.0) % Baso % (Auto) 0.1 (0.0-2.0) % Neut # (Auto) 8.78 H (1.40-7.00) K/uL Lymph # (Auto) 0.68 (0.50-3.50) K/uL [place] # (Auto) 0.75 (0.00-1.00) K/uL Eos # (Auto) 0.02 (0.00-0.50) K/uL Baso # (Auto) 0.01 (0.00-0.20) K/uL Sodium 135 L (136-145) mmol/L Potassium 4.7 (3.5-5.1) mmol/L Chloride 105 (98-107) mmol/L Carbon Dioxide 19.0 L (21.0-32.0) mmol/L Anion Gap 15.7 H (7-15) meq/L BUN 27 H (7-18) mg/dL Creatinine 1.59 H (0.51-1.17) mg/dL Est Cr Clr Drug Dosing 24.22 mL/min Estimated GFR (MDRD) 31 mL/min Glucose 128 H (70-99) mg/dL Lactic Acid 0.8 (0.4-2.0) mmol/L Calcium 8.0 L (8.5-10.1) mg/dL Iron (50-175) ug/dL TIBC (250-450) ug/dL % Saturation Ferritin (8-388) ng/mL Total Bilirubin (0.2-1.0) mg/dL AST (15-37) U/L ALT (12-78) U/L Alkaline Phosphatase (46-116) IU/L C-Reactive Protein 18.4 H (<=0.9) mg/dL Total Protein (6.4-8.2) g/dL Albumin (3.4-5.0) g/dL Specimen Type Urine Color Urine Appearance Urine pH (5.0-9.0) Ur Specific [place] (1.005-1.030) Urine Protein (NEGATIVE) mg/dL Urine Glucose (UA) (NEGATIVE) mg/dL Urine Ketones (NEGATIVE) mg/dL Urine Occult Blood (NEGATIVE) Urine Nitrite (NEGATIVE) Urine Bilirubin (NEGATIVE) Urine Urobilinogen (0.2-1.0) E.U./dL Ur Leukocyte Esterase (NEGATIVE) U Hyaline Cast (Auto) Urine RBC /HPF Urine WBC /HPF Ur Epithelial Cells /LPF Urine Bacteria (NONE TO FEW) /HPF Urinalysis Comment SARS-CoV-2 Ag (Rapid) (NEGATIVE) Result Diagrams: 08/15/21 07:15 08/15/21 07:15 Tr Results Last 24 hrs: Microbiology 08/14/21 18:43 Urine Culture - Preliminary Urine, Voided Gram Negative Rods 08/14/21 17:15 Anaerobic Blood Culture - Preliminary Blood - Venous Gram Negative Rods Sepsis Event Note - Evaluation Sepsis Screening Result: No Definite Risk - Focused Exam Vital Signs: Vital Signs Temp Pulse Pulse Resp BP BP Pulse Ox 08/15/21 08:00 97.3 F 63 12 123/58 L 100 08/15/21 07:32 63 123/58 L 08/15/21 04:00 97.5 F 61 12 122/50 L 100 08/15/21 01:45 96.8 F L 71 16 140/50 L 99 - Problem List Review Problem List Initiated/Reviewed/Updated: Yes - Plan Plan:: Severe sepsis due to #2/3. WBC 5.1, hemoglobin 10.3, neutrophil 91.2, platelet 246 lactic 1.3. Fever 101, Tachypnea Cultures pending Rocephin 1 g IVPB q24 UTI Nitrite positive, U WBC 3040 trace leukocytes bacteria many Urine culture pending, 2 g Rocephin ER 1 g every 24 Community Acquired Pneumonia, bilateral Acute respiratory failure with hypoxia 2/2 above - CXR: infrahilar patchy markings. - currently requiring 2L supplemental oxygen to maintain saturation >90% Plan: - IV Ceftriaxone and Azithro 500mg qd. - follow results of cultures - wean oxygen as tolerated. Acute on chronic renal failure stage IIIb. - Baseline creatinine 1.5, 08/14/21 1.87, BUN 30, GFR 26. - LR bolus ER 1 liter then NS at 125mL/hr Plan: - DC IVF as renal function is at baseline. - repeat BMP early am unspecified acute vs subacute normocytic Anemia: - possible secondary to acute illness, dilutional effect, chronic iron deficiency or blood loss. Pt currently asymptomatic - Baseline hgb 12. Admit: hgb 10.3 admission MCV/MCH Plan: - follow results of iron studies. refer back to PCP at discharge for further evaluation as long as Hgb remains stable/begins to up-trend while inpatient. - repeat CBC without diff daily. Acute on Chronic Hyponatremia. - baseline Na: 130. pt asymptomatic. no obvious medication source. possible diet related. again, refer to PCP for further evaluation as outpatient as long as Na remains stable while in hospital DMII, non insulin dependent, with unspecified complications - HgbA1c 6.0 04/30/21 - POC blood glucose daily Generalized Weakness and physical deconditioning - likely secondary to acute illness. will continue to monitor Plan: - PT/OT evaluation. Chronic conditions: continue current home medications as ordered. Obesity: - BMI >30. Discussed healthy eating techniques and exercise. benign essential Hypertension - currently well controlled. - continue Losartan 100mg qd. Spironolactone 50mg qd Atenolol 100mg qd. Arterial Occlusive disease, embolism and thrombosis of unspecified artery - continue Asa 81mg qd, Cilostazol 100mg bid. acquired Hypothyroidism - TSH 1.21 08/12/21 stable. continue synthroid 50mcg qd. Pure Hypercholesterolemia: continue Simvastatin 40mg qd. GERD without esophagitis: continue Protonix 40mg qd. VTE: Lovenox 30mg subcut TEDs CrCl 29.29 Sepsis: Noted as above. Cultures pending. Ceftriaxone 1 gram qd, azithro 500mg qd. follow and monitor. Code Status. Code status discussed at length with the patient who was previously was unsure, discussed aprox 5 minutes. She decided DNR/DNI. DNR/DNI Interval Hx/MDM: Pt improving on current broad spec abx. blood cultures are currently positive for gram negative rods with repeat cultures pending. renal function has returned to baseline so we have discontinued IVF. Iron studies are pending but overall plan for likely subacute vs chronic hyponatremia and anemia will be to insure stability while inpatient then send to PCP for follow up as outpatient at discharge. PT/OT consulted for generalized weakness andphysical deconditioning. discharge disposition likely home but with possible home health and cannot be definitely determined at this point. will require blood cultures negative for 48 hrs prior to discharge from the hospital.
[2021-08-15] MEDS: CILOSTAZOL 100 MG PO SCH ×2 (11:10→17:19)
[2021-08-15] MEDS: cefTRIAXone 2 GM in Sodium Chloride 0.9% 100 ML IV SCH (17:19)
[2021-08-15] MEDS ORDERED: cefTRIAXone 1 GM in Sodium Chloride 0.9% 100 ML IV SCH (18:00)
[2021-08-15] MEDS: Azithromycin 500 MG in Sodium Chloride 0.9% 250 ML IV SCH (20:00)
[2021-08-15] MEDS: Sodium Chloride 0.9% 10 ML Syringe FLUSH PRN ×2 (20:00→21:11)
[2021-08-15] MEDS ORDERED: Non-Formulary Medication 1 Each (Ciclopirox [Penlac 8% Nail Lacquer] 6.6 ML Bottle) TOP SCH (20:00)
[2021-08-15] MEDS: Acetaminophen 325 MG Tab PO PRN (20:03)
[2021-08-15] MEDS: Simvastatin 20 MG Tab PO SCH (20:03)
[2021-08-16] MEDS: Pantoprazole 40 MG Tab.CR PO SCH (08:10)
[2021-08-16] MEDS: Atenolol 50 MG Tab PO SCH (08:11)
[2021-08-16] MEDS: Cholecalciferol (Vitamin D3) 25 MCG Tab PO SCH ×2 (08:11→17:22)
[2021-08-16] MEDS: Docusate Sodium 100 MG Cap PO SCH (08:11)
[2021-08-16] MEDS: Levothyroxine 50 MCG Tab PO SCH (08:12)
[2021-08-16] MEDS: Spironolactone 25 MG Tab PO SCH (08:12)
[2021-08-16] MEDS: Losartan 50 MG Tab PO SCH (08:12)
[2021-08-16] MEDS: Multivitamin Tab PO SCH (08:12)
[2021-08-16] MEDS: CILOSTAZOL 100 MG PO SCH ×2 (08:13→17:22)
[2021-08-16] MEDS: Enoxaparin 30 MG/0.3 ML Syringe SUBCUT SCH ×2 (08:14→12:30)
[2021-08-16 08:35] LABS: ANION GAP 15.1 meq/L (7-15)
--- NOTE | 2021-08-16 16:12 | PCM.PN ---
- General Info Date of Service: 08/16/21 Admission Dx/Problem (Free Text): Gram negative bacteremia likely secondary to uncomplicated urinary tract infection. bilateral community acquired pneumonia. acute respiratory failure with hypoxia. E.Coli identified by . Blood cultures positive for gram negative rods on 08/14. repeat cultures pending. Subjective Update: feeling much better but not baseline. up around room independently today. Functional Status: Reports: Pain Controlled, Tolerating Diet, Ambulating, Urinating, Incentive Spirometry. Denies: New Symptoms - Review of Systems General: Reports: Fatigue. Denies: Fever, Malaise, Chills, Night Sweats HEENT: Reports: No Symptoms Pulmonary: Reports: No Symptoms. Denies: Shortness of Breath, Pleuritic Chest Pain, Cough, Sputum, Hemoptysis, Wheezing Cardiovascular: Reports: No Symptoms Gastrointestinal: Reports: No Symptoms Genitourinary: Reports: No Symptoms Musculoskeletal: Reports: Other (no acute changes from baseline) Skin: Reports: No Symptoms Neurological: Reports: No Symptoms Psychiatric: Reports: No Symptoms - Patient Data Vitals - Most Recent: Last Vital Signs Temp 36.7 C 08/16/21 13:15 Pulse 68 08/16/21 13:15 Resp 16 08/16/21 13:15 BP 152/52 H 08/16/21 13:15 Pulse Ox 99 08/16/21 13:15 Weight - Most Recent: 73.028 kg I&O - Last 24 Hours: Intake & Output 08/16/21 08/16/21 08/16/21 06:59 14:59 22:59 Intake Total 100 1200 Balance 100 1200 Lab Results Last 24 Hours: Laboratory Results - last 24 hr 08/14/21 08/16/21 08/16/21 Range/Units 17:15 07:40 07:40 WBC 8.2 (4.0-10.2) K/uL RBC 2.76 L (3.77-5.09) M/uL Hgb 8.9 L (11.7-15.5) g/dL Hct 26.5 L (34.0-46.0) % MCV 96.0 (84.0-98.0) fL MCH 32.2 (28.2-33.3) pg MCHC 33.6 (31.7-36.0) g/dL RDW 11.9 (11.2-14.1) % Plt Count 269 (150-350) K/uL Neut % (Auto) 82.8 H (45.0-80.0) % Lymph % (Auto) 9.5 L (10.0-50.0) % [place] % (Auto) 6.5 (2.0-14.0) % Eos % (Auto) 1.0 (0.0-5.0) % Baso % (Auto) 0.2 (0.0-2.0) % Neut # (Auto) 6.77 (1.40-7.00) K/uL Lymph # (Auto) 0.78 (0.50-3.50) K/uL [place] # (Auto) 0.53 (0.00-1.00) K/uL Eos # (Auto) 0.08 (0.00-0.50) K/uL Baso # (Auto) 0.02 (0.00-0.20) K/uL Sodium 135 L (136-145) mmol/L Potassium 4.2 (3.5-5.1) mmol/L Chloride 103 (98-107) mmol/L Carbon Dioxide 21.1 (21.0-32.0) mmol/L Anion Gap 15.1 H (7-15) meq/L BUN 21 H (7-18) mg/dL Creatinine 1.38 H (0.51-1.17) mg/dL Est Cr Clr Drug Dosing 27.90 mL/min Estimated GFR (MDRD) 36 mL/min Glucose 130 H (70-99) mg/dL Calcium 8.5 (8.5-10.1) mg/dL C-Reactive Protein 16.2 H (<=0.9) mg/dL Procalcitonin 0.18 H ng/mL Tr Results Last 24 Hours: Microbiology 08/14/21 18:43 Urine Culture - Final Urine, Voided Escherichia Coli 08/15/21 08:45 Aerobic Blood Culture - Preliminary Blood - Venous - Lab Draw NO GROWTH AFTER 1 DAY Anaerobic Blood Culture - Preliminary NO GROWTH AFTER 1 DAY 08/14/21 17:15 Aerobic Blood Culture - Preliminary Blood - Venous NO GROWTH AFTER 1 DAY Anaerobic Blood Culture - Preliminary Gram Negative Rods 08/15/21 07:15 Aerobic Blood Culture - Preliminary Blood - Venous NO GROWTH AFTER 1 DAY Anaerobic Blood Culture - Preliminary NO GROWTH AFTER 1 DAY 08/14/21 17:45 Aerobic Blood Culture - Preliminary Blood - Venous - Lab Draw NO GROWTH AFTER 1 DAY Anaerobic Blood Culture - Preliminary NO GROWTH AFTER 1 DAY Med Orders - Current: Current Medications Acetaminophen (Acetaminophen 325 Mg Tab) 650 mg PO Q4H PRN PRN Reason: Pain (Mild 1-3)/fever Last Admin: 08/15/21 20:03 Dose: 650 mg Documented by: Atenolol (Atenolol 50 Mg Tab) 100 mg PO DAILY PENDING SALE TO [facility] Last Admin: 08/16/21 08:11 Dose: 100 mg Documented by: Cholecalciferol (Cholecalciferol (Vitamin D3) 25 Mcg Tab) 25 mcg PO BID PENDING SALE TO [facility] Last Admin: 08/16/21 08:11 Dose: 25 mcg Documented by: Docusate Sodium (Docusate Sodium 100 Mg Cap) 100 mg PO DAILY PENDING SALE TO [facility] Last Admin: 08/16/21 08:11 Dose: 100 mg Documented by: Azithromycin 500 mg/ Sodium (Chloride) 250 mls @ 250 mls/hr IV Q24H PENDING SALE TO [facility] Last Admin: 08/15/21 20:00 Dose: 250 mls/hr Documented by: Ceftriaxone Sodium 2 gm/ (Sodium Chloride) 100 mls @ 200 mls/hr IV Q24H PENDING SALE TO [facility] Last Admin: 08/15/21 17:19 Dose: 200 mls/hr Documented by: Levothyroxine Sodium (Levothyroxine 50 Mcg Tab) 50 mcg PO ACBREAKFAST PENDING SALE TO [facility] Last Admin: 08/16/21 08:12 Dose: 50 mcg Documented by: Losartan Potassium (Losartan 50 Mg Tab) 100 mg PO DAILY PENDING SALE TO [facility] Last Admin: 08/16/21 08:12 Dose: 100 mg Documented by: Multivitamins/Minerals/Vitamin C (Multivitamin Tab) 1 tab PO DAILY PENDING SALE TO [facility] Last Admin: 08/16/21 08:12 Dose: 1 tab Documented by: Cilostazol [Pletal] (100 Mg Tablet) 100 mg PO BID PENDING SALE TO [facility] Last Admin: 08/16/21 08:13 Dose: 100 mg Documented by: Pantoprazole Sodium (Pantoprazole 40 Mg Tab.Cr) 40 mg PO ACBREAKFAST PENDING SALE TO [facility] Last Admin: 08/16/21 08:10 Dose: 40 mg Documented by: Simvastatin (Simvastatin 20 Mg Tab) 40 mg PO BEDTIME PENDING SALE TO [facility] Last Admin: 08/15/21 20:03 Dose: 40 mg Documented by: Sodium Chloride (Sodium Chloride 0.9% 10 Ml Syringe) 10 ml FLUSH ASDIRECTED PRN PRN Reason: Keep Vein Open Last Admin: 08/15/21 21:11 Dose: 10 ml Documented by: Spironolactone (Spironolactone 25 Mg Tab) 50 mg PO DAILY PENDING SALE TO [facility] Last Admin: 08/16/21 08:12 Dose: 50 mg Documented by: Discontinued Medications Acetaminophen (Acetaminophen 500 Mg Tab) 1,000 mg PO ONETIME ONE Stop: 08/14/21 17:33 Last Admin: 08/14/21 17:36 Dose: 1,000 mg Documented by: Ceftriaxone Sodium (Ceftriaxone 2 Gm Vial) 2 gm IVPUSH NOW STA Stop: 08/14/21 17:22 Last Admin: 08/14/21 17:36 Dose: 2 gm Documented by: Enoxaparin Sodium (Enoxaparin 30 Mg/0.3 Ml Syringe) 30 mg SUBCUT DAILY PENDING SALE TO [facility] Last Admin: 08/16/21 12:30 Dose: Not Given Documented by: Fluticasone Propionate (Fluticasone Propionate Nasal [place] 16 Gm Bottle) 0 gm NASBOTH DAILY PENDING SALE TO [facility] Last Admin: 08/15/21 07:40 Dose: Not Given Documented by: Lactated Ringer's (Ringers, Lactated) 1,000 mls @ 1,000 mls/hr IV .BOLUS ONE Stop: 08/14/21 18:14 Last Admin: 08/14/21 17:20 Dose: 1,000 mls/hr Documented by: Sodium Chloride (Normal Saline) 1,000 mls @ 150 mls/hr IV ASDIRECTED PENDING SALE TO [facility] Last Admin: 08/14/21 18:19 Dose: 150 mls/hr Documented by: Ceftriaxone Sodium 1 gm/ (Sodium Chloride) 100 mls @ 200 mls/hr IV Q24H PENDING SALE TO [facility] Sodium Chloride (Normal Saline) 1,000 mls @ 125 mls/hr IV ASDIRECTED PENDING SALE TO [facility] Last Admin: 08/15/21 04:01 Dose: 125 mls/hr Documented by: Sodium Chloride (Sodium Chloride 0.9% 10 Ml Syringe) 10 ml FLUSH ASDIRECTED PRN PRN Reason: Keep Vein Open - Exam Quality Assessment: Supplemental Oxygen, DVT Prophylaxis General: Alert, Oriented, Cooperative, No Acute Distress HEENT: Pupils Equal, Pupils Reactive, EOMI, Mucous Membr. Moist/[place] Neck: Supple Lungs: Clear to Auscultation, Normal Respiratory Effort Cardiovascular: Regular Rate, Regular Rhythm GI/Abdominal Exam: Normal Bowel Sounds, Soft, Non-Tender, No Distention (Female) Exam: Deferred Back Exam: No: CVA Tenderness (L), CVA Tenderness (R), Muscle Spasm, Paraspinal Tenderness, Vertebral Tenderness Extremities: Non-Tender, Normal Capillary Refill Skin: Warm, Dry Neurological: No New Focal Deficit Psy/Mental Status: Alert, Normal Affect, Normal Mood - Patient Data Lab Results Last 24 hrs: Laboratory Results - last 24 hr 08/14/21 08/16/21 08/16/21 Range/Units 17:15 07:40 07:40 WBC 8.2 (4.0-10.2) K/uL RBC 2.76 L (3.77-5.09) M/uL Hgb 8.9 L (11.7-15.5) g/dL Hct 26.5 L (34.0-46.0) % MCV 96.0 (84.0-98.0) fL MCH 32.2 (28.2-33.3) pg MCHC 33.6 (31.7-36.0) g/dL RDW 11.9 (11.2-14.1) % Plt Count 269 (150-350) K/uL Neut % (Auto) 82.8 H (45.0-80.0) % Lymph % (Auto) 9.5 L (10.0-50.0) % [place] % (Auto) 6.5 (2.0-14.0) % Eos % (Auto) 1.0 (0.0-5.0) % Baso % (Auto) 0.2 (0.0-2.0) % Neut # (Auto) 6.77 (1.40-7.00) K/uL Lymph # (Auto) 0.78 (0.50-3.50) K/uL [place] # (Auto) 0.53 (0.00-1.00) K/uL Eos # (Auto) 0.08 (0.00-0.50) K/uL Baso # (Auto) 0.02 (0.00-0.20) K/uL Sodium 135 L (136-145) mmol/L Potassium 4.2 (3.5-5.1) mmol/L Chloride 103 (98-107) mmol/L Carbon Dioxide 21.1 (21.0-32.0) mmol/L Anion Gap 15.1 H (7-15) meq/L BUN 21 H (7-18) mg/dL Creatinine 1.38 H (0.51-1.17) mg/dL Est Cr Clr Drug Dosing 27.90 mL/min Estimated GFR (MDRD) 36 mL/min Glucose 130 H (70-99) mg/dL Calcium 8.5 (8.5-10.1) mg/dL C-Reactive Protein 16.2 H (<=0.9) mg/dL Procalcitonin 0.18 H ng/mL Result Diagrams: 08/16/21 07:40 08/16/21 07:40 Tr Results Last 24 hrs: Microbiology 08/14/21 18:43 Urine Culture - Final Urine, Voided Escherichia Coli 08/15/21 08:45 Aerobic Blood Culture - Preliminary Blood - Venous - Lab Draw NO GROWTH AFTER 1 DAY Anaerobic Blood Culture - Preliminary NO GROWTH AFTER 1 DAY 08/14/21 17:15 Aerobic Blood Culture - Preliminary Blood - Venous NO GROWTH AFTER 1 DAY Anaerobic Blood Culture - Preliminary Gram Negative Rods 08/15/21 07:15 Aerobic Blood Culture - Preliminary Blood - Venous NO GROWTH AFTER 1 DAY Anaerobic Blood Culture - Preliminary NO GROWTH AFTER 1 DAY 08/14/21 17:45 Aerobic Blood Culture - Preliminary Blood - Venous - Lab Draw NO GROWTH AFTER 1 DAY Anaerobic Blood Culture - Preliminary NO GROWTH AFTER 1 DAY Sepsis Event Note - Evaluation Sepsis Screening Result: No Definite Risk - Focused Exam Vital Signs: Vital Signs Temp Pulse Pulse Resp BP BP Pulse Ox 08/16/21 13:15 36.7 C 68 16 152/52 H 99 08/16/21 08:12 141/58 H 08/16/21 08:11 67 141/58 H 08/16/21 07:25 36.7 C 67 16 141/58 H 99 08/16/21 04:00 36.2 C 65 16 149/57 H 98 - Problem List Review Problem List Initiated/Reviewed/Updated: Yes - Plan Plan:: Severe sepsis due to UTI WBC 5.1, hemoglobin 10.3, neutrophil 91.2, platelet 246 lactic 1.3. Fever 101, Tachypnea Culture identified E.Coli UTI. Blood culture with gram negative rods. Rocephin IVPB q24 UTI E.Coli UTI per culture. Sensitive to Rocephin. Continue Rocephin IVPB Q24 Community Acquired Pneumonia, bilateral Acute respiratory failure with hypoxia - CXR: infrahilar patchy markings. - Initially rquired 2L supplemental oxygen to maintain saturation >90% Now on room air Plan: - IV Ceftriaxone and Azithro 500mg qd. - follow results of cultures Acute on chronic renal failure stage IIIb. - Baseline creatinine 1.5, 08/14/21 1.87, BUN 30, GFR 26. - Creatinine responded well to IV fluids and is 1.38 today. Recheck level in AM. IV fluids discontinued. unspecified acute vs subacute normocytic Anemia: - possible secondary to acute illness, dilutional effect, chronic iron deficiency or blood loss. Pt currently asymptomatic - Baseline hgb 12. Admit: hgb 10.3 admission MCV/MCH Plan: - follow results of iron studies. refer back to PCP at discharge for further e valuation as long as Hgb remains stable/begins to up-trend while inpatient. - repeat CBC without diff daily. Acute on Chronic Hyponatremia. - baseline Na: 130. pt asymptomatic. no obvious medication source. possible diet related. again, refer to PCP for further evaluation as outpatient as long as Na remains stable while in hospital DMII, non insulin dependent, with unspecified complications - HgbA1c 6.0 04/30/21 - POC blood glucose daily Generalized Weakness and physical deconditioning - likely secondary to acute illness. will continue to monitor Plan: - PT/OT evaluation. Chronic conditions: continue current home medications as ordered. Obesity: - BMI >30. Discussed healthy eating techniques and exercise. benign essential Hypertension - currently well controlled. - continue Losartan 100mg qd. Spironolactone 50mg qd Atenolol 100mg qd. Arterial Occlusive disease, embolism and thrombosis of unspecified artery - continue Asa 81mg qd, Cilostazol 100mg bid. acquired Hypothyroidism - TSH 1.21 08/12/21 stable. continue synthroid 50mcg qd. Pure Hypercholesterolemia: continue Simvastatin 40mg qd. GERD without esophagitis: continue Protonix 40mg qd. VTE: Lovenox 30mg subcut TEDs initially. Will hold Lovenox today and patient has restarted her chronic anticoagulation medication Pletal. Sepsis: Noted as above. Repeat blood cultures pending. Ceftriaxone 2 gram qd, azithro 500mg qd. follow and monitor. Code Status: DNR/DNI Interval Hx/MDM: Pt improving on current broad spec abx. Repeat blood cultures are pending. Initial blood cultures + for gram negative rods. UC positive for E.Coli. Renal function has returned to baseline so we have discontinued IVF. Iro n studies are pending but overall plan for likely subacute vs chronic hyponatremia and anemia will be to insure stability while inpatient then send to PCP for follow up as outpatient at discharge. PT/OT consulted for generalized weakness and physical deconditioning. Will require blood cultures negative for 48 hrs prior to discharge from the hospital. Anticipated discharge Wednesday morning if continues to do well/pharmacies open.
[2021-08-16] MEDS: cefTRIAXone 2 GM in Sodium Chloride 0.9% 100 ML IV SCH (17:22)
[2021-08-16] MEDS: Sodium Chloride 0.9% 10 ML Syringe FLUSH PRN ×2 (17:25→19:31)
[2021-08-16] MEDS: Azithromycin 500 MG in Sodium Chloride 0.9% 250 ML IV SCH (19:24)
[2021-08-16] MEDS: Simvastatin 20 MG Tab PO SCH (19:24)
[2021-08-16] MEDS: Acetaminophen 325 MG Tab PO PRN (20:34)
[2021-08-17] MEDS: Docusate Sodium 100 MG Cap PO SCH (07:30)
[2021-08-17] MEDS: Losartan 50 MG Tab PO SCH (07:30)
[2021-08-17] MEDS: Spironolactone 25 MG Tab PO SCH (07:31)
[2021-08-17] MEDS: Atenolol 50 MG Tab PO SCH (07:31)
[2021-08-17] MEDS: Cholecalciferol (Vitamin D3) 25 MCG Tab PO SCH ×2 (07:31→17:29)
[2021-08-17] MEDS: Levothyroxine 50 MCG Tab PO SCH (07:32)
[2021-08-17] MEDS: Multivitamin Tab PO SCH (07:32)
[2021-08-17] MEDS: CILOSTAZOL 100 MG PO SCH ×2 (07:32→17:29)
[2021-08-17] MEDS: Pantoprazole 40 MG Tab.CR PO SCH (07:32)
[2021-08-17 08:23] LABS: ANION GAP 16.4 meq/L (7-15)
[2021-08-17] MEDS: cefTRIAXone 2 GM in Sodium Chloride 0.9% 100 ML IV SCH (17:29)
[2021-08-17] MEDS: Sodium Chloride 0.9% 10 ML Syringe FLUSH PRN ×2 (17:30→19:25)
--- NOTE | 2021-08-17 19:18 | PCM.PN ---
- General Info Date of Service: 08/17/21 Admission Dx/Problem (Free Text): Gram negative bacteremia likely secondary to uncomplicated urinary tract infection. bilateral community acquired pneumonia. acute respiratory failure with hypoxia. E.Coli identified by . Blood cultures positive for gram negative rods on 08/14. repeat cultures pending. Subjective Update: feeling much better but not baseline. up around room independently today. Functional Status: Reports: Pain Controlled, Tolerating Diet, Ambulating, Urinating. Denies: New Symptoms - Review of Systems General: Reports: Fatigue. Denies: Fever, Malaise, Chills, Night Sweats, Appetite HEENT: Reports: No Symptoms Pulmonary: Reports: No Symptoms Cardiovascular: Reports: No Symptoms Gastrointestinal: Reports: No Symptoms Genitourinary: Reports: No Symptoms Musculoskeletal: Reports: Other (no acute changes from baseline) Skin: Reports: No Symptoms Neurological: Reports: No Symptoms Psychiatric: Reports: No Symptoms - Patient Data Vitals - Most Recent: Last Vital Signs Temp 36.7 C 08/17/21 16:00 Pulse 62 08/17/21 16:00 Resp 14 08/17/21 16:00 BP 123/53 L 08/17/21 16:00 Pulse Ox 97 08/17/21 16:00 Weight - Most Recent: 73.028 kg I&O - Last 24 Hours: Intake & Output 08/17/21 08/17/21 08/17/21 06:59 14:59 22:59 Intake Total 100 750 360 Balance 100 750 360 Lab Results Last 24 Hours: Laboratory Results - last 24 hr 08/17/21 08/17/21 Range/Units 07:39 07:39 WBC 7.3 (4.0-10.2) K/uL RBC 2.83 L (3.77-5.09) M/uL Hgb 9.2 L (11.7-15.5) g/dL Hct 26.9 L (34.0-46.0) % MCV 95.1 (84.0-98.0) fL MCH 32.5 (28.2-33.3) pg MCHC 34.2 (31.7-36.0) g/dL RDW 11.9 (11.2-14.1) % Plt Count 298 (150-350) K/uL Neut % (Auto) 82.3 H (45.0-80.0) % Lymph % (Auto) 10.1 (10.0-50.0) % [place] % (Auto) 6.3 (2.0-14.0) % Eos % (Auto) 1.0 (0.0-5.0) % Baso % (Auto) 0.3 (0.0-2.0) % Neut # (Auto) 6.02 (1.40-7.00) K/uL Lymph # (Auto) 0.74 (0.50-3.50) K/uL [place]oving # (Auto) 0.46 (0.00-1.00) K/uL Eos # (Auto) 0.07 (0.00-0.50) K/uL Baso # (Auto) 0.02 (0.00-0.20) K/uL Sodium 134 L (136-145) mmol/L Potassium 4.5 (3.5-5.1) mmol/L Chloride 101 (98-107) mmol/L Carbon Dioxide 21.1 (21.0-32.0) mmol/L Anion Gap 16.4 H (7-15) meq/L BUN 18 (7-18) mg/dL Creatinine 1.35 H (0.51-1.17) mg/dL Est Cr Clr Drug Dosing 28.52 mL/min Estimated GFR (MDRD) 37 mL/min Glucose 131 H (70-99) mg/dL Calcium 8.7 (8.5-10.1) mg/dL C-Reactive Protein 13.0 H (<=0.9) mg/dL Tr Results Last 24 Hours: Microbiology 08/14/21 17:45 Aerobic Blood Culture - Preliminary Blood - Venous - Lab Draw NO GROWTH AFTER 3 DAYS Anaerobic Blood Culture - Preliminary NO GROWTH AFTER 3 DAYS 08/14/21 17:15 Aerobic Blood Culture - Preliminary Blood - Venous NO GROWTH AFTER 3 DAYS Anaerobic Blood Culture - Final Escherichia Coli 08/15/21 08:45 Aerobic Blood Culture - Preliminary Blood - Venous - Lab Draw NO GROWTH AFTER 2 DAYS Anaerobic Blood Culture - Preliminary NO GROWTH AFTER 2 DAYS 08/15/21 07:15 Aerobic Blood Culture - Preliminary Blood - Venous NO GROWTH AFTER 2 DAYS Anaerobic Blood Culture - Final Med Orders - Current: Current Medications Acetaminophen (Acetaminophen 325 Mg Tab) 650 mg PO Q4H PRN PRN Reason: Pain (Mild 1-3)/fever Last Admin: 08/16/21 20:34 Dose: 650 mg Documented by: Atenolol (Atenolol 50 Mg Tab) 100 mg PO DAILY [facility] Last Admin: 08/17/21 07:31 Dose: 100 mg Documented by: Cholecalciferol (Cholecalciferol (Vitamin D3) 25 Mcg Tab) 25 mcg PO BID [facility] Last Admin: 08/17/21 17:29 Dose: 25 mcg Documented by: Docusate Sodium (Docusate Sodium 100 Mg Cap) 100 mg PO DAILY [facility] Last Admin: 08/17/21 07:30 Dose: 100 mg Documented by: Azithromycin 500 mg/ Sodium (Chloride) 250 mls @ 250 mls/hr IV Q24H [facility] Last Admin: 08/16/21 19:24 Dose: 250 mls/hr Documented by: Ceftriaxone Sodium 2 gm/ (Sodium Chloride) 100 mls @ 200 mls/hr IV Q24H [facility] Last Admin: 08/17/21 17:29 Dose: 200 mls/hr Documented by: Levothyroxine Sodium (Levothyroxine 50 Mcg Tab) 50 mcg PO ACBREAKFAST [facility] Last Admin: 08/17/21 07:32 Dose: 50 mcg Documented by: Losartan Potassium (Losartan 50 Mg Tab) 100 mg PO DAILY [facility] Last Admin: 08/17/21 07:30 Dose: 100 mg Documented by: Multivitamins/Minerals/Vitamin C (Multivitamin Tab) 1 tab PO DAILY [facility] Last Admin: 08/17/21 07:32 Dose: 1 tab Documented by: Cilostazol [Pletal] (100 Mg Tablet) 100 mg PO BID [facility] Last Admin: 08/17/21 17:29 Dose: 100 mg Documented by: Pantoprazole Sodium (Pantoprazole 40 Mg Tab.Cr) 40 mg PO ACBREAKFAST [facility] Last Admin: 08/17/21 07:32 Dose: 40 mg Documented by: Simvastatin (Simvastatin 20 Mg Tab) 40 mg PO BEDTIME [facility] Last Admin: 08/16/21 19:24 Dose: 40 mg Documented by: Sodium Chloride (Sodium Chloride 0.9% 10 Ml Syringe) 10 ml FLUSH ASDIRECTED PRN PRN Reason: Keep Vein Open Last Admin: 08/17/21 17:30 Dose: 10 ml Documented by: Spironolactone (Spironolactone 25 Mg Tab) 50 mg PO DAILY [facility] Last Admin: 08/17/21 07:31 Dose: 50 mg Documented by: Discontinued Medications Acetaminophen (Acetaminophen 500 Mg Tab) 1,000 mg PO ONETIME ONE Stop: 08/14/21 17:33 Last Admin: 08/14/21 17:36 Dose: 1,000 mg Documented by: Ceftriaxone Sodium (Ceftriaxone 2 Gm Vial) 2 gm IVPUSH NOW STA Stop: 08/14/21 17:22 Last Admin: 08/14/21 17:36 Dose: 2 gm Documented by: Enoxaparin Sodium (Enoxaparin 30 Mg/0.3 Ml Syringe) 30 mg SUBCUT DAILY [facility] Last Admin: 08/16/21 12:30 Dose: Not Given Documented by: Fluticasone Propionate (Fluticasone Propionate Nasal [place] 16 Gm Bottle) 0 gm NASBOTH DAILY [facility] Last Admin: 08/15/21 07:40 Dose: Not Given Documented by: Lactated Ringer's (Ringers, Lactated) 1,000 mls @ 1,000 mls/hr IV .BOLUS ONE Stop: 08/14/21 18:14 Last Admin: 08/14/21 17:20 Dose: 1,000 mls/hr Documented by: Sodium Chloride (Normal Saline) 1,000 mls @ 150 mls/hr IV ASDIRECTED [facility] Last Admin: 08/14/21 18:19 Dose: 150 mls/hr Documented by: Ceftriaxone Sodium 1 gm/ (Sodium Chloride) 100 mls @ 200 mls/hr IV Q24H [place] Sodium Chloride (Normal Saline) 1,000 mls @ 125 mls/hr IV ASDIRECTED [facility] Last Admin: 08/15/21 04:01 Dose: 125 mls/hr Documented by: Sodium Chloride (Sodium Chloride 0.9% 10 Ml Syringe) 10 ml FLUSH ASDIRECTED PRN PRN Reason: Keep Vein Open - Exam Quality Assessment: DVT Prophylaxis General: Alert, Oriented, Cooperative, No Acute Distress HEENT: Pupils Equal, Pupils Reactive, EOMI, Mucous Membr. Moist/[place] Neck: Supple Lungs: Clear to Auscultation, Normal Respiratory Effort Cardiovascular: Regular Rate, Regular Rhythm GI/Abdominal Exam: Normal Bowel Sounds, Soft, Non-Tender, No Distention (Female) Exam: Deferred Back Exam: No: CVA Tenderness (L), CVA Tenderness (R), Muscle Spasm, Paraspinal Tenderness, Vertebral Tenderness Extremities: Normal Range of Motion, Non-Tender, Normal Capillary Refill Skin: Warm, Dry Neurological: No New Focal Deficit Psy/Mental Status: Alert, Normal Affect, Normal Mood - Patient Data Lab Results Last 24 hrs: Laboratory Results - last 24 hr 08/17/21 08/17/21 Range/Units 07:39 07:39 WBC 7.3 (4.0-10.2) K/uL RBC 2.83 L (3.77-5.09) M/uL Hgb 9.2 L (11.7-15.5) g/dL Hct 26.9 L (34.0-46.0) % MCV 95.1 (84.0-98.0) fL MCH 32.5 (28.2-33.3) pg MCHC 34.2 (31.7-36.0) g/dL RDW 11.9 (11.2-14.1) % Plt Count 298 (150-350) K/uL Neut % (Auto) 82.3 H (45.0-80.0) % Lymph % (Auto) 10.1 (10.0-50.0) % Loving % (Auto) 6.3 (2.0-14.0) % Eos % (Auto) 1.0 (0.0-5.0) % Baso % (Auto) 0.3 (0.0-2.0) % Neut # (Auto) 6.02 (1.40-7.00) K/uL Lymph # (Auto) 0.74 (0.50-3.50) K/uL Loving # (Auto) 0.46 (0.00-1.00) K/uL Eos # (Auto) 0.07 (0.00-0.50) K/uL Baso # (Auto) 0.02 (0.00-0.20) K/uL Sodium 134 L (136-145) mmol/L Potassium 4.5 (3.5-5.1) mmol/L Chloride 101 (98-107) mmol/L Carbon Dioxide 21.1 (21.0-32.0) mmol/L Anion Gap 16.4 H (7-15) meq/L BUN 18 (7-18) mg/dL Creatinine 1.35 H (0.51-1.17) mg/dL Est Cr Clr Drug Dosing 28.52 mL/min Estimated GFR (MDRD) 37 mL/min Glucose 131 H (70-99) mg/dL Calcium 8.7 (8.5-10.1) mg/dL C-Reactive Protein 13.0 H (<=0.9) mg/dL Result Diagrams: 08/17/21 07:39 08/17/21 07:39 Tr Results Last 24 hrs: Microbiology 08/14/21 17:45 Aerobic Blood Culture - Preliminary Blood - Venous - Lab Draw NO GROWTH AFTER 3 DAYS Anaerobic Blood Culture - Preliminary NO GROWTH AFTER 3 DAYS 08/14/21 17:15 Aerobic Blood Culture - Preliminary Blood - Venous NO GROWTH AFTER 3 DAYS Anaerobic Blood Culture - Final Escherichia Coli 08/15/21 08:45 Aerobic Blood Culture - Preliminary Blood - Venous - Lab Draw NO GROWTH AFTER 2 DAYS Anaerobic Blood Culture - Preliminary NO GROWTH AFTER 2 DAYS 08/15/21 07:15 Aerobic Blood Culture - Preliminary Blood - Venous NO GROWTH AFTER 2 DAYS Anaerobic Blood Culture - Final Sepsis Event Note - Evaluation Sepsis Screening Result: No Definite Risk - Focused Exam Vital Signs: Vital Signs Temp Pulse Pulse Resp BP BP Pulse Ox 08/17/21 16:00 36.7 C 62 14 123/53 L 97 08/17/21 08:00 36.6 C 67 16 146/59 H 97 08/17/21 07:31 67 146/59 H 08/17/21 07:30 146/59 H - Problem List Review Problem List Initiated/Reviewed/Updated: Yes - My Orders Last 24 Hours: My Active Orders 08/18/21 05:11 COMPREHENSIVE METABOLIC PN,CMP [CHEM] AM UA W/MICROSCOPIC [URIN] AM 08/18/21 05:15 CBC WITH AUTO DIFF [HEME] AM - Plan Plan:: Severe sepsis due to UTI WBC 5.1, hemoglobin 10.3, neutrophil 91.2, platelet 246 lactic 1.3. Fever 101, Tachypnea Culture identified E.Coli UTI. Blood culture with gram negative rods. Rocephin IVPB q24 UTI E.Coli UTI per culture. Sensitive to Rocephin. Continue Rocephin IVPB Q24 Recheck urine in AM Community Acquired Pneumonia, bilateral Acute respiratory failure with hypoxia - CXR: infrahilar patchy markings. - Initially required 2L supplemental oxygen to maintain saturation >90% Now on room air -recheck chest xray in AM Plan: - IV Ceftriaxone and Azithro 500mg qd. Acute on chronic renal failure stage IIIb. - Baseline creatinine 1.5, 08/14/21 1.87, BUN 30, GFR 26. - Creatinine responded well to IV fluids and has returned to baseline. IV fluids discontinued. unspecified acute vs subacute normocytic Anemia: - possible secondary to acute illness, dilutional effect, chronic iron deficiency or blood loss. Pt currently asymptomatic - Baseline hgb 12. Admit: hgb 10.3 admission MCV/MCH Plan: - Iron studies suggest pattern of anemia of chronic disease. refer back to PCP at discharge for further evaluation as long as Hgb remains stable/begins to up- trend while inpatient. - repeat CBC without diff daily. Acute on Chronic Hyponatremia. - baseline Na: 130. pt asymptomatic. no obvious medication source. possible diet related. again, refer to PCP for further evaluation as outpatient as long as Na remains stable while in hospital DMII, non insulin dependent, with unspecified complications - HgbA1c 6.0 04/30/21 - POC blood glucose daily Generalized Weakness and physical deconditioning - likely secondary to acute illness. will continue to monitor Plan: - PT/OT evaluation. Chronic conditions: continue current home medications as ordered. Obesity: - BMI >30. Discussed healthy eating techniques and exercise. benign essential Hypertension - currently well controlled. - continue Losartan 100mg qd. Spironolactone 50mg qd Atenolol 100mg qd. Arterial Occlusive disease, embolism and thrombosis of unspecified artery - continue Asa 81mg qd, Cilostazol 100mg bid. acquired Hypothyroidism - TSH 1.21 08/12/21 stable. continue synthroid 50mcg qd. Pure Hypercholesterolemia: continue Simvastatin 40mg qd. GERD without esophagitis: continue Protonix 40mg qd. VTE: Lovenox 30mg subcut TEDs initially. Will hold Lovenox today and patient has restarted her chronic anticoagulation medication Pletal. Sepsis: Noted as above. Repeat blood cultures pending. Ceftriaxone 2 gram qd, azithro 500mg qd. follow and monitor. Code Status: DNR/DNI Interval Hx/MDM: Pt improving on current broad spec abx. Repeat blood cultures are pending and currently negative after 2 days. Initial blood cultures + for E.Coli/sensitive to Rocephin. UC positive for E.Coli. Renal function has returned to baseline so we have discontinued IVF. Plan for subacute vs chronic hyponatremia and anemia will be to insure stability while inpatient then send to PCP for follow up as outpatient at discharge. PT/OT consulted for generalized weakness and physical deconditioning. Anticipate discharge tomorrow.
[2021-08-17] MEDS: Azithromycin 500 MG in Sodium Chloride 0.9% 250 ML IV SCH ×2 (19:24→19:56)
[2021-08-17] MEDS: Simvastatin 20 MG Tab PO SCH (19:24)
[2021-08-17] MEDS ORDERED: Azithromycin 250 MG Tab PO ONE (20:04)
[2021-08-18 08:16] VITALS: BP 130/52; PULSE 60
[2021-08-18] MEDS: Atenolol 50 MG Tab PO SCH (08:22)
[2021-08-18] MEDS: Losartan 50 MG Tab PO SCH (08:23)
[2021-08-18] MEDS: Pantoprazole 40 MG Tab.CR PO SCH (08:23)
[2021-08-18] MEDS: Levothyroxine 50 MCG Tab PO SCH (08:23)
[2021-08-18] MEDS: Docusate Sodium 100 MG Cap PO SCH (08:24)
[2021-08-18] MEDS: Multivitamin Tab PO SCH (08:24)
[2021-08-18] MEDS: Cholecalciferol (Vitamin D3) 25 MCG Tab PO SCH (08:24)
[2021-08-18] MEDS: Spironolactone 25 MG Tab PO SCH (08:24)
[2021-08-18] MEDS: CILOSTAZOL 100 MG PO SCH (08:24)
[2021-08-18 08:53] LABS: ANION GAP 16.1 meq/L (7-15)
--- NOTE | 2021-08-18 13:17 | PCM.DCSUM1 ---
Discharge Summary - Hospital Course Brief History: Patient admitted for treatment of UTI, sepsis, and community aquired pneumonia. Diagnosis: Stroke: No - Discharge Data Discharge Date: 08/18/21 Discharge Disposition: Home, Self-Care 01 Condition: Good - Referral to Home Health Primary Care Physician: Patricia Sharma PA-C - Discharge Diagnosis/Problem(s) (1) Severe sepsis with acute organ dysfunction SNOMED Code(s): 49686377 ICD Code: A41.9 - SEPSIS, UNSPECIFIED ORGANISM; R65.20 - SEVERE SEPSIS WITHOUT SEPTIC SHOCK Status: Resolved Priority: High Problem Details: see below (2) UTI, Urinary tract infectious disease SNOMED Code(s): 70245508 ICD Code: N39.0 - URINARY TRACT INFECTION, SITE NOT SPECIFIED Status: Resolved Priority: High Onset Date: ~08/14/21 Problem Details: see below (3) Community acquired pneumonia SNOMED Code(s): 148358448 ICD Code: J18.9 - PNEUMONIA, UNSPECIFIED ORGANISM Status: Resolved Priority: High Problem Details: Patchy markings in the left perihilar region in both infrahilar regions. Suggestive of bilateral pneumonia/see below Qualifiers: Laterality: unspecified laterality Qualified Code(s): J18.9 - Pneumonia, unspecified organism (4) Generalized weakness SNOMED Code(s): 40866175 ICD Code: R53.1 - WEAKNESS Status: Resolved Priority: Medium Problem Details: feels much improved, suspect secondary to her acute infection. (5) Acute renal failure superimposed on stage 3b chronic kidney disease SNOMED Code(s): 334674999 ICD Code: N17.9 - ACUTE KIDNEY FAILURE, UNSPECIFIED; N18.32 - CHRONIC KIDNEY DISEASE, STAGE 3B Status: Chronic Priority: Medium Problem Details: see below Qualifiers: Acute renal failure type: unspecified Qualified Code(s): N17.9 - Acute kidney failure, unspecified; N18.32 - Chronic kidney disease, stage 3b (6) Anemia SNOMED Code(s): 866720677 ICD Code: D64.9 - ANEMIA, UNSPECIFIED Status: Chronic Priority: Low Problem Details: see below Qualifiers: Anemia type: other cause Other causes of anemia: chronic disease, other Qualified Code(s): D63.8 - Anemia in other chronic diseases classified elsewhere (7) Obesity SNOMED Code(s): 628069458, 621007038 ICD Code: E66.9 - OBESITY, UNSPECIFIED Status: Chronic Priority: Low Problem Details: see below (8) Pure hypercholesterolemia SNOMED Code(s): 107065275 ICD Code: E78.00 - PURE HYPERCHOLESTEROLEMIA, UNSPECIFIED Status: Chronic Priority: Low Problem Details: see below (9) HTN, Benign hypertension SNOMED Code(s): 70862096 ICD Code: I10 - ESSENTIAL (PRIMARY) HYPERTENSION Status: Chronic Priority: Low Problem Details: See below (10) Hypothyroidism SNOMED Code(s): 09324654 ICD Code: E03.9 - HYPOTHYROIDISM, UNSPECIFIED Status: Chronic Priority: Medium Problem Details: Chronic/see below (11) Diabetes mellitus type 2 in obese SNOMED Code(s): 23713511 ICD Code: E11.69 - TYPE 2 DIABETES MELLITUS WITH OTHER SPECIFIED COMPLICATION; E66.9 - OBESITY, UNSPECIFIED Status: Chronic Priority: Low Problem Details: see below - Patient Summary/Data Consults: Consultations 08/14/21 20:12 Consult to Case Management/[employer] Manager [CONS] Routine OT Evaluation and Treatment [CONS] Routine PT Evaluation and Treatment [CONS] Routine Hospital Course: *Severe sepsis due to UTI: Patient treated with IV Rocephin/Zithromax. Blood and urine cultures + for E.Coli which was sensitive to Rocephin. Significant improvement noted during course of hospitalization. Patient feels back to genna flores this morning. Will be continued or oral Keflex so that she has 10 day course of antibiotics given the bacteremia. *Community Acquired Pneumonia, bilateral Acute respiratory failure with hypoxia , CXR: infrahilar patchy markings. IV Rocephin/Zithromax. - Initially required 2L supplemental oxygen to maintain saturation >90% . Weaned to room air. Cough has mostly resolved per patient. Repeat chest xray shows improvement today. *Acute on chronic renal failure stage IIIb. - Baseline creatinine 1.5, 08/14/21 1.87, BUN 30, GFR 26. - Creatinine responded well to IV fluids and has returned to baseline. *unspecified acute vs subacute normocytic Anemia: - Iron studies suggest pattern of anemia of chronic disease. refer back to PCP at discharge for further evaluation as needed. *Acute on Chronic Hyponatremia. - baseline Na: 130. pt asymptomatic. no obvious medication source. possible diet related. again, refer to PCP for further evaluation as outpatient as needed. Stable during hospitalization. *DMII, non insulin dependent, with unspecified complications - HgbA1c 6.0 04/30/21 - Follow up with PCP *Generalized Weakness and physical deconditioning - Much improved today after having the above acute conditions treated and feels back to baseline Chronic conditions: continue current home medications as ordered. *Obesity: - BMI >30. Discussed healthy eating techniques and exercise. *benign essential Hypertension - currently well controlled. - continue Losartan 100mg qd. Spironolactone 50mg qd Atenolol 100mg qd. *Arterial Occlusive disease, embolism and thrombosis of unspecified artery - continue Asa 81mg qd, Cilostazol 100mg bid. *acquired Hypothyroidism - TSH 1.21 08/12/21 stable. continue synthroid 50mcg qd. *Pure Hypercholesterolemia: continue Simvastatin 40mg qd. *GERD without esophagitis: continue Protonix 40mg qd. Pt improved on broad spec abx. Repeat blood cultures negative. In - Patient Instructions Diet: Usual Diet as Tolerated Activity: As Tolerated Driving: May Drive Today Showering/Bathing: May Shower Other/Special Instructions: Follow up as needed if you have any problems. We will have you take Keflex twice a day for 5 days. There is a SMALL chance you could have an allergic reaction to the Keflex if you are truly allergic to the Penicillin. If you have any problems stop the Keflex and give us a call and we can change the medication. - Discharge Plan *PRESCRIPTION DRUG MONITORING PROGRAM REVIEWED*: Not Applicable *COPY OF PRESCRIPTION DRUG MONITORING REPORT IN PATIENT GARY: Not Applicable Prescriptions/Med Rec: cephALEXin [Keflex] 500 mg PO BID #10 cap Home Medications: Home Meds Cholecalciferol (Vitamin D3) [Vitamin D3] 1,000 units PO BID 03/20/14 [History] Chondroitin/Glucosamine [Glucosamine-Chondroitin] 2 cap PO DAILY 03/20/14 [History] Losartan [Cozaar] 1 cap PO DAILY 03/20/14 [History] Multivitamin [Multi-Vitamin Daily] 1 each PO DAILY 03/20/14 [History] Ciclopirox [Penlac 8% Nail Lacquer] 1 applic TOP BEDTIME 08/14/21 [History] Cranberry Fruit Extract [Cranberry] 200 mg PO BID PRN 08/14/21 [History] Docusate Sodium 100 mg PO DAILY PRN 08/14/21 [History] Levothyroxine [Synthroid] 50 mcg PO ACBREAKFAST 08/14/21 [History] Pantoprazole [ProTONIX] 40 mg PO DAILY 08/14/21 [History] Simvastatin [Zocor] 40 mg PO BEDTIME 08/14/21 [History] Spironolactone 50 mg PO DAILY 08/14/21 [History] atenoloL [Atenolol] 100 mg PO DAILY 08/14/21 [History] cilostazoL [Pletal] 100 mg PO BID 08/14/21 [History] cephALEXin [Keflex] 500 mg PO BID #10 cap 08/18/21 [Rx] Patient Handouts: Ceftriaxone Injection, Azithromycin solution for injection, Urinary Tract Infection, Adult, [id number], Community-Acquired Pneumonia, Adult, [id number] Forms: ED Department Discharge Referrals: Patricia Sharma PA-C [Primary Care Provider] - - Discharge Summary/Plan Comment DC Time >30 min.: No Total # of Minutes for Discharge Time: 30 - General Info Date of Service: 08/18/21 Admission Dx/Problem (Free Text: Gram negative bacteremia likely secondary to uncomplicated urinary tract infection. bilateral community acquired pneumonia. acute respiratory failure with hypoxia. E.Coli identified by . Blood cultures positive for gram negative rods on 08/14. repeat cultures pending. Subjective Update: Feels back to baseline Numeric/FACES Score: 0 - Review of Systems General: Reports: No Symptoms HEENT: Reports: No Symptoms, Glasses Pulmonary: Reports: No Symptoms Cardiovascular: Reports: No Symptoms Gastrointestinal: Reports: No Symptoms Genitourinary: Reports: No Symptoms Musculoskeletal: Reports: Other (no acute changes from baseline) Skin: Reports: No Symptoms Neurological: Reports: No Symptoms Psychiatric: Reports: No Symptoms - Patient Data Vitals - Most Recent: Last Vital Signs Temp 36.5 C 08/18/21 08:00 Pulse 60 08/18/21 08:22 Resp 14 08/18/21 08:00 BP 130/52 L 08/18/21 08:23 Pulse Ox 97 08/18/21 08:00 Weight - Most Recent: 73.028 kg I&O - Last 24 hours: Intake & Output 08/17/21 08/18/21 08/18/21 22:59 06:59 14:59 Intake Total 360 100 780 Balance 360 100 780 Lab Results - Last 24 hrs: Laboratory Results - last 24 hr 08/18/21 08/18/21 08/18/21 Range/Units 07:27 07:27 09:20 WBC 8.2 (4.0-10.2) K/uL RBC 2.78 L (3.77-5.09) M/uL Hgb 9.1 L (11.7-15.5) g/dL Hct 26.5 L (34.0-46.0) % MCV 95.3 (84.0-98.0) fL MCH 32.7 (28.2-33.3) pg MCHC 34.3 (31.7-36.0) g/dL RDW 11.8 (11.2-14.1) % Plt Count 308 (150-350) K/uL Neut % (Auto) 78.5 (45.0-80.0) % Lymph % (Auto) 12.3 (10.0-50.0) % [place] % (Auto) 7.8 (2.0-14.0) % Eos % (Auto) 1.0 (0.0-5.0) % Baso % (Auto) 0.4 (0.0-2.0) % Neut # (Auto) 6.47 (1.40-7.00) K/uL Lymph # (Auto) 1.01 (0.50-3.50) K/uL [place] # (Auto) 0.64 (0.00-1.00) K/uL Eos # (Auto) 0.08 (0.00-0.50) K/uL Baso # (Auto) 0.03 (0.00-0.20) K/uL Sodium 133 L (136-145) mmol/L Potassium 4.8 (3.5-5.1) mmol/L Chloride 99 (98-107) mmol/L Carbon Dioxide 22.7 (21.0-32.0) mmol/L Anion Gap 16.1 H (7-15) meq/L BUN 14 (7-18) mg/dL Creatinine 1.30 H (0.51-1.17) mg/dL Est Cr Clr Drug Dosing 29.62 mL/min Estimated GFR (MDRD) 39 mL/min Glucose 133 H (70-99) mg/dL Calcium 8.8 (8.5-10.1) mg/dL Total Bilirubin 0.3 (0.2-1.0) mg/dL AST 19 (15-37) U/L ALT 40 (12-78) U/L Alkaline Phosphatase 38 L (46-116) IU/L Total Protein 6.5 (6.4-8.2) g/dL Albumin 2.4 L (3.4-5.0) g/dL Specimen Type Urinvoid Urine Color Yellow Urine Appearance Clear Urine pH 5.5 (5.0-9.0) Ur Specific [place] 1.015 (1.005-1.030) Urine Protein 30 H (NEGATIVE) mg/dL Urine Glucose (UA) Negative (NEGATIVE) mg/dL Urine Ketones Negative (NEGATIVE) mg/dL Urine Occult Blood Negative (NEGATIVE) Urine Nitrite Negative (NEGATIVE) Urine Bilirubin Negative (NEGATIVE) Urine Urobilinogen 0.2 (0.2-1.0) E.U./dL Ur Leukocyte Esterase Negative (NEGATIVE) Urine RBC Not seen /HPF Urine WBC 0-5 /HPF Ur Epithelial Cells Many H /LPF Urine Bacteria Moderate H (NONE TO FEW) /HPF TRACY Results - Last 24 hrs: Microbiology 08/15/21 08:45 Aerobic Blood Culture - Preliminary Blood - Venous - Lab Draw NO GROWTH AFTER 3 DAYS Anaerobic Blood Culture - Preliminary NO GROWTH AFTER 3 DAYS 08/14/21 17:15 Aerobic Blood Culture - Final Blood - Venous Gram Negative Rods Anaerobic Blood Culture - Final Escherichia Coli 08/15/21 07:15 Aerobic Blood Culture - Preliminary Blood - Venous NO GROWTH AFTER 3 DAYS Anaerobic Blood Culture - Final 08/14/21 17:45 Aerobic Blood Culture - Preliminary Blood - Venous - Lab Draw NO GROWTH AFTER 3 DAYS Anaerobic Blood Culture - Preliminary NO GROWTH AFTER 3 DAYS Med Orders - Current: Current Medications Acetaminophen (Acetaminophen 325 Mg Tab) 650 mg PO Q4H PRN PRN Reason: Pain (Mild 1-3)/fever Last Admin: 08/16/21 20:34 Dose: 650 mg Documented by: Atenolol (Atenolol 50 Mg Tab) 100 mg PO DAILY [facility] Last Admin: 08/18/21 08:22 Dose: 100 mg Documented by: Cholecalciferol (Cholecalciferol (Vitamin D3) 25 Mcg Tab) 25 mcg PO BID [facility] Last Admin: 08/18/21 08:24 Dose: 25 mcg Documented by: Docusate Sodium (Docusate Sodium 100 Mg Cap) 100 mg PO DAILY [facility] Last Admin: 08/18/21 08:24 Dose: 100 mg Documented by: Ceftriaxone Sodium 2 gm/ (Sodium Chloride) 100 mls @ 200 mls/hr IV Q24H [facility] Last Admin: 08/17/21 17:29 Dose: 200 mls/hr Documented by: Levothyroxine Sodium (Levothyroxine 50 Mcg Tab) 50 mcg PO ACBREAKFAST [facility] Last Admin: 08/18/21 08:23 Dose: 50 mcg Documented by: Losartan Potassium (Losartan 50 Mg Tab) 100 mg PO DAILY [facility] Last Admin: 08/18/21 08:23 Dose: 100 mg Documented by: Multivitamins/Minerals/Vitamin C (Multivitamin Tab) 1 tab PO DAILY [facility] Last Admin: 08/18/21 08:24 Dose: 1 tab Documented by: Cilostazol [Pletal] (100 Mg Tablet) 100 mg PO BID [facility] Last Admin: 08/18/21 08:24 Dose: 100 mg Documented by: Pantoprazole Sodium (Pantoprazole 40 Mg Tab.Cr) 40 mg PO ACBREAKFAST [facility] Last Admin: 08/18/21 08:23 Dose: 40 mg Documented by: Simvastatin (Simvastatin 20 Mg Tab) 40 mg PO BEDTIME [facility] Last Admin: 08/17/21 19:24 Dose: 40 mg Documented by: Sodium Chloride (Sodium Chloride 0.9% 10 Ml Syringe) 10 ml FLUSH ASDIRECTED PRN PRN Reason: Keep Vein Open Last Admin: 08/17/21 19:25 Dose: 10 ml Documented by: Spironolactone (Spironolactone 25 Mg Tab) 50 mg PO DAILY [facility] Last Admin: 08/18/21 08:24 Dose: 50 mg Documented by: Discontinued Medications Acetaminophen (Acetaminophen 500 Mg Tab) 1,000 mg PO ONETIME ONE Stop: 08/14/21 17:33 Last Admin: 08/14/21 17:36 Dose: 1,000 mg Documented by: Azithromycin (Azithromycin 250 Mg Tab) 500 mg PO ONETIME ONE Stop: 08/17/21 20:05 Last Admin: 08/17/21 20:14 Dose: 500 mg Documented by: Ceftriaxone Sodium (Ceftriaxone 2 Gm Vial) 2 gm IVPUSH NOW STA Stop: 08/14/21 17:22 Last Admin: 08/14/21 17:36 Dose: 2 gm Documented by: Enoxaparin Sodium (Enoxaparin 30 Mg/0.3 Ml Syringe) 30 mg SUBCUT DAILY [facility] Last Admin: 08/16/21 12:30 Dose: Not Given Documented by: Fluticasone Propionate (Fluticasone Propionate Nasal [place] 16 Gm Bottle) 0 gm NASBOTH DAILY [facility] Last Admin: 08/15/21 07:40 Dose: Not Given Documented by: Lactated Ringer's (Ringers, Lactated) 1,000 mls @ 1,000 mls/hr IV .BOLUS ONE Stop: 08/14/21 18:14 Last Admin: 08/14/21 17:20 Dose: 1,000 mls/hr Documented by: Sodium Chloride (Normal Saline) 1,000 mls @ 150 mls/hr IV ASDIRECTED [facility] Last Admin: 08/14/21 18:19 Dose: 150 mls/hr Documented by: Azithromycin 500 mg/ Sodium (Chloride) 250 mls @ 250 mls/hr IV Q24H [facility] Last Admin: 08/17/21 19:56 Dose: Not Given Documented by: Ceftriaxone Sodium 1 gm/ (Sodium Chloride) 100 mls @ 200 mls/hr IV Q24H [facility] Sodium Chloride (Normal Saline) 1,000 mls @ 125 mls/hr IV ASDIRECTED [facility] Last Admin: 08/15/21 04:01 Dose: 125 mls/hr Documented by: Sodium Chloride (Sodium Chloride 0.9% 10 Ml Syringe) 10 ml FLUSH ASDIRECTED PRN PRN Reason: Keep Vein Open - Exam Quality Assessment: Reports: DVT Prophylaxis General: Reports: Alert, Oriented, Cooperative, No Acute Distress HEENT: Reports: Pupils Equal, Pupils Reactive, EOMI, Mucous Membr. Moist/[place]ck: Reports: Supple Lungs: Reports: Clear to Auscultation, Normal Respiratory Effort Cardiovascular: Reports: Regular Rate, Regular Rhythm GI/Abdominal Exam: Normal Bowel Sounds, Soft, Non-Tender (Female) Exam: Deferred Rectal (Female) Exam: Deferred Back Exam: Reports: Normal Inspection Extremities: Normal Range of Motion, Non-Tender, Normal Capillary Refill Skin: Reports: Warm, Dry Neurological: Reports: No New Focal Deficit Psy/Mental Status: Reports: Alert, Normal Affect, Normal Mood
== END 2021-08-18 14:10 | disposition home or self-care (01) | DRG 871 ==
LOC: LL.ED 17:11 → LL.MS 20:09
PROVIDERS: ADMIT Nurse Practitioner Family; ATTEND Nurse Practitioner Family
DX: A41.9 Sepsis, unspecified organism (principal); A41.51 Sepsis due to Escherichia coli [E. coli]; J18.9 Pneumonia, unspecified organism; J96.01 Acute respiratory failure with hypoxia; N39.0 Urinary tract infection, site not specified; N17.9 Acute kidney failure, unspecified; Z66 Do not resuscitate; E87.1 Hypo-osmolality and hyponatremia; D64.9 Anemia, unspecified; H54.7 Unspecified visual loss; R65.20 Severe sepsis without septic shock; R53.1 Weakness; Z88.0 Allergy status to penicillin; Z88.1 Allergy status to other antibiotic agents; Z79.890 Hormone replacement therapy; Z79.899 Other long term (current) drug therapy; N18.32 Chronic kidney disease, stage 3b; D63.1 Anemia in chronic kidney disease; E66.9 Obesity, unspecified; E78.00 Pure hypercholesterolemia, unspecified; E03.9 Hypothyroidism, unspecified; E11.22 Type 2 diabetes mellitus with diabetic chronic kidney disease; I12.9 Hypertensive chronic kidney disease with stage 1 through stage 4 chronic kidney disease, or unspecified chronic kidney disease; R53.81 Other malaise; Z68.30 Body mass index [BMI] 30.0-30.9, adult; K21.9 Gastro-esophageal reflux disease without esophagitis; Z20.822 Contact with and (suspected) exposure to COVID-19
CPT/HCPCS: 36415; 71045; 80053; 81001; 82607; 82728; 82746; 83540; 83550; 83605; 84145; 85025; 86140; 87040 ×2; 87077; 87086; 87088; 87186 ×2; 87426; 96374; 99285; A9270; J0696; J7030; J7120; 71046; 80048; 97165-GO; J0456; J1650; J7050